=== PATIENT | male | born 1935 | race Caucasian/White ===

== ENCOUNTER 2016-03-17 18:09 | Inpatient (IN) ==
[2016-03-17] MEDS ORDERED: 0.9 % SODIUM CHLORIDE 1,000 ML IV ONE (18:15)
[2016-03-17] MEDS ORDERED: ACETAMINOPHEN 325 MG TABLET PO ONE (18:41)
--- NOTE | 2016-03-17 18:48 | Emergency Department Note ---
Weakness HPI - General Chief complaint: Weakness Stated complaint: weakness Time Seen by Provider: 03/17/16 18:12 Source: patient, EMS Mode of arrival: ambulatory Limitations: no limitations - History of Present Illness HPI Narrative: 80-year-old male with a history of any symptoms for the past 10 days, was seen by his PCP today ,Xavi Bianchi, put him on Bactrim today. Is continuing to feel poorly with weakness and fever. Current temperature 102. Complaining of some weakness. There's been no syncope. Denies any cough and eyes, any chest pain, no nausea, no vomiting, diarrhea, constipation problems. - Related Data Allergies Allergy/AdvReac Type Severity Reaction Status Date / Time NKDA Allergy Unknown N/A Uncoded 08/22/14 04:57 Review of Systems All systems ED: reviewed and negative except as stated. Constitutional: Reports: fever, chills Eyes: Denies: eye pain ENT ED: Denies: ear pain, throat pain Cardiovascular: Denies: chest pain, palpitations, dyspnea on exertion Respiratory: Denies: cough, dyspnea, wheezes Gastrointestinal: Denies: abdominal pain Genitourinary: Reports: as per HPI, urgency, dysuria, frequency. Denies: hematuria, discharge Musculoskeletal: Denies: back pain Integumentary: Denies: rash Neurological: Denies: headache Psychiatric: Denies: anxiety Endocrine: Denies: fatigue Hematological/Lymphatic: Denies: easy bleeding Allergic/Immunologic: Denies: facial swelling Past Medical History Family history: Reports: CAD/AK (father age 83, aortic aneurysm) - Social History smoking status: Former smoker Alcohol use: Reports: Occasionally (2 drinks/d) Drug use: Reports: none Physical Exam - General Limitations: no limitations General appearance: alert - Head Head exam: atraumatic - Eye Eye exam: Present: normal appearance - ENT ENT exam: normal exam - Neck Neck exam: Present: normal inspection, full ROM - Chest Chest inspection: Present: normal inspection, symmetric chest wall rise - Respiratory Respiratory exam: Present: normal lung sounds bilaterally. Absent: respiratory distress, wheezes - Cardiovascular Cardiovascular exam: Present: regular rate, normal rhythm - Abdominal Exam Abdominal exam: Present: soft. Absent: distention, tenderness - Extremities Exam Extremities exam: Present: normal inspection, full ROM. Absent: tenderness - Back Exam Back exam: Present: normal inspection, full ROM. Absent: tenderness - Neurological Exam Neurological exam: Present: alert, oriented X3, CN II-XII intact - Psychiatric Psychiatric exam: Present: normal affect, normal mood. Absent: depressed - Skin Skin exam: Present: warm, dry, intact Course Vital Signs Temperature 102.1 F H 03/17/16 18:10 Pulse Rate 79 03/17/16 18:10 Respiratory Rate 18 03/17/16 18:10 Blood Pressure 137/74 03/17/16 18:10 Pulse Oximetry (%) 94 03/17/16 18:10 Temperature 98.5 F 03/17/16 20:14 Pulse Rate 77 03/17/16 21:00 Respiratory Rate 16 03/17/16 21:00 Blood Pressure 119/73 03/17/16 21:00 Pulse Oximetry (%) 95 03/17/16 21:00 Weakness - MDM Narrative Medical decision making narrative: his bp's have been normal, wbc is elevated at 12,500 and 49 segs and 21 bands. LaCTIC ELEVATED 2.4 ua IS CLEAR BUT HAS BEEN ON SEPTRA TODAY. Dr Velarde contacted and will here to evaluate. - Lab Data Result diagrams: 03/17/16 18:25 03/17/16 18:25 Lab Results 03/17/16 03/17/16 03/17/16 Range/Units 18:25 18:25 18:25 WBC 12.7 H (4.5-11.0) K/mcL RBC 5.35 (4.50-5.90) M/mcL Hgb 16.5 (13.5-16.5) g/dL Hct 50.4 (41.0-55.0) % MCV 94.2 (80.0-100.0) fL MCH 30.9 (26.0-34.0) pg MCHC 32.8 (31.0-36.0) g/dL RDW 14.1 (11.5-14.5) % Plt Count 139 L (140-440) K/mcL MPV 9.4 (7.4-10.4) fL Total Counted 100 Seg Neutrophils % 49 (38-78) % Band Neutrophils % 21 H (0-10) % Lymphocytes % 13 L (15-49) % Monocytes % (Manual) 17 H (1-9) % Platelet Estimate Decreased A (NORMAL) RBC Morphology Normal (NORMAL) VBG Lactic Acid 2.4 H (0.5-2.2) mmol/L Sodium 136 (133-145) mmol/L Potassium 4.1 (3.3-5.1) mmol/L Chloride 94 L (96-108) mmol/L Carbon Dioxide 24 (22-30) mmol/L Anion Gap 18.0 H (8-16) BUN 30 H (8-23) mg/dl Creatinine 1.6 H (0.7-1.2) mg/dl GFR Calculation 40 Glucose 125 H (70-105) mg/dL Calcium 9.6 (8.6-10.4) mg/dl Total Bilirubin 0.8 (0.0-1.0) mg/dL AST 44 H (0-37) U/l ALT 49 H (0-40) U/l Alkaline Phosphatase 79 (39-117) U/L Total Protein 7.6 (5.9-8.4) gm/dL Albumin 4.2 (3.2-5.2) gm/dL Globulin 3.4 (2.2-3.7) gm/dL Albumin/Globulin Ratio 1.2 (1.0-2.3) Urine Color Urine Appearance Urine pH (5.0-9.0) Ur Specific [place] (1.000-1.035) Urine Protein (NEG) mg/dL Urine Glucose (UA) (NEG) mg/dL Urine Ketones (NEG) mg/dL Urine Occult Blood (<0.03) mg/dL Urine Nitrate (NEG) Urine Bilirubin (NEG) mg/dL Urine Urobilinogen (NEG) mg/dL Ur Leukocyte Esterase (NEG) /uL Urine RBC (0-1) /hpf Urine WBC (0-4) /hpf Ur Squamous Epith Cells (0-4) /hpf Ur Transition Epith Cell (0-2) /hpf Urine Bacteria (0) /hpf Hyaline Casts (0-2) /lpf Urine Mucus (0) /hpf Ur Culture Indicated? 03/17/16 Range/Units 20:25 WBC (4.5-11.0) K/mcL RBC (4.50-5.90) M/mcL Hgb (13.5-16.5) g/dL Hct (41.0-55.0) % MCV (80.0-100.0) fL MCH (26.0-34.0) pg MCHC (31.0-36.0) g/dL RDW (11.5-14.5) % Plt Count (140-440) K/mcL MPV (7.4-10.4) fL Total Counted Seg Neutrophils % (38-78) % Band Neutrophils % (0-10) % Lymphocytes % (15-49) % Monocytes % (Manual) (1-9) % Platelet Estimate (NORMAL) RBC Morphology (NORMAL) VBG Lactic Acid (0.5-2.2) mmol/L Sodium (133-145) mmol/L Potassium (3.3-5.1) mmol/L Chloride (96-108) mmol/L Carbon Dioxide (22-30) mmol/L Anion Gap (8-16) BUN (8-23) mg/dl Creatinine (0.7-1.2) mg/dl GFR Calculation Glucose (70-105) mg/dL Calcium (8.6-10.4) mg/dl Total Bilirubin (0.0-1.0) mg/dL AST (0-37) U/l ALT (0-40) U/l Alkaline Phosphatase (39-117) U/L Total Protein (5.9-8.4) gm/dL Albumin (3.2-5.2) gm/dL Globulin (2.2-3.7) gm/dL Albumin/Globulin Ratio (1.0-2.3) Urine Color Yellow Urine Appearance Hazy Urine pH 5.0 (5.0-9.0) Ur Specific [place] 1.021 (1.000-1.035) Urine Protein 30 A (NEG) mg/dL Urine Glucose (UA) Negative (NEG) mg/dL Urine Ketones Neg (NEG) mg/dL Urine Occult Blood Neg (<0.03) mg/dL Urine Nitrate Neg (NEG) Urine Bilirubin Neg (NEG) mg/dL Urine Urobilinogen Neg (NEG) mg/dL Ur Leukocyte Esterase Neg (NEG) /uL Urine RBC 1 (0-1) /hpf Urine WBC 1 (0-4) /hpf Ur Squamous Epith Cells 3 (0-4) /hpf Ur Transition Epith Cell < 1 (0-2) /hpf Urine Bacteria 0 (0) /hpf Hyaline Casts 8 H (0-2) /lpf Urine Mucus Few (0) /hpf Ur Culture Indicated? No Disposition Clinical Impression: Sepsis Disposition: Xfer As Inpt ([facility]) Referrals: Donna Bianchi ARNP [Primary Care Provider] -
[2016-03-17 19:21] LABS: Mean Cell Volume 94.2 fL (80.0-100.0); Mean Corpuscular HGB Conc 32.8 g/dL (31.0-36.0); Mean Corpuscular Hemoglobin 30.9 pg (26.0-34.0); Platelet Count 139 K/mcL (140-440); RBC 5.35 M/mcL (4.50-5.90); Red Cell Distribution Width 14.1 % (11.5-14.5)
[2016-03-17 19:43] LABS: ALT/SGPT 49 U/l (0-40); Albumin 4.2 gm/dL (3.2-5.2); Albumin/Globulin Ratio 1.2 (1.0-2.3); Alkaline Phosphatase 79 U/L (39-117); Blood Urea Nitrogen 30 mg/dl (8-23)
[2016-03-17 19:51] LABS: Band Neutrophils % 21 % (0-10); Lymphocytes % 13 % (15-49); Monocytes % (Manual) 17 % (1-9); Platelet Estimate DECREASED (NORMAL); RBC Morphology NORMAL (NORMAL); Segmented Neutrophils % 49 % (38-78)
[2016-03-17] MEDS ORDERED: LEVOFLOXACIN 500 MG/100 ML BAG IV ONE (19:57)
[2016-03-17 20:38] LABS: Appearance,Urine HAZY; Bacteria,Urine 0 /hpf (0); Bilirubin,Urine NEG (NEG); Color,Urine YELLOW; Glucose,Urine (UA) NEGATIVE (NEG); Leukocyte Esterase,Urine NEG /uL (NEG); Mucus,Urine FEW /hpf (0); Nitrate,Urine NEG (NEG); Protein,Urine 30 mg/dL (NEG); Specific Gravity,Urine 1.021 (1.000-1.035); Urine Blood NEG mg/dL (<0.03); Urine Hyaline Cast 8 /lpf (0-2); Urine RBC 1 /hpf (0-1); Urine Squamous Epithelial Cell 3 /hpf (0-4); Urine Transitional Epi Cells < 1 /hpf (0-2); Urine WBC 1 /hpf (0-4); Urobilinogen,Urine NEG (NEG)
[2016-03-17] MEDS ORDERED: cefTRIAXone 1 GM in DEXTROSE 5% IN WATER 50 ML IV ONE ×2 (21:19→23:05)
[2016-03-17] MEDS ORDERED: ONDANSETRON 4 MG/2 ML VIAL IV PRN ×2 (22:15→23:05)
[2016-03-17] MEDS ORDERED: 0.9 % SODIUM CHLORIDE 1,000 ML IV SCH (22:15)
[2016-03-17] MEDS ORDERED: FLEETS ADULT ENEMA PR PRN ×2 (22:15→23:05)
[2016-03-17] MEDS ORDERED: ACETAMINOPHEN 325 MG TABLET PO PRN ×2 (22:15→23:05)
[2016-03-17] MEDS ORDERED: cefTRIAXone 1 GM in DEXTROSE 5% IN WATER 50 ML IV SCH (22:15)
[2016-03-17] MEDS ORDERED: LEVOFLOXACIN 750 MG/150 ML BAG IV SCH (22:15)
[2016-03-17] MEDS ORDERED: TAMSULOSIN 0.4 MG CAPSULE PO ONE ×2 (22:23→23:05)
--- NOTE | 2016-03-17 22:30 | Internal Med History&Physical ---
Medical - H&P: HPI Patient information: Note initiated : 03/17/16 at 10:26 pm Service Date, if different from initiated Date: [] Patient: Ernesto Murillo a 80 y/o M admitted on for weakness. Chief Complaint: [] History of present illness: Mr. Murillo is a 80 year old male presents to the er after not feeling well for around 10 days, progressive weakness. He went to see his pcp today and was febrile, and was given bactrim. After reaching home he was too weak to stay home. He was finding it difficult to get out of bed and do any activity. he therefore presented to the ER. he denies any chills but was febrile in the Er. he has h/o urinary incontience, he has urinary urgency and incotience, which has been going on for last 1 yr, he takes finasterid and flomax for same. he denies any buring urine, foul smelling urine or uretheral discharge. No pelvic pain. he denies any cough, nausea vomiting, or abdominal pain. In the ER his ua was clean but he had elevated wbc, elevated lactate and worsening renal function, admitted to the hospital for further management. patients X ray is not reported but on my review there may be some infiltrate on the right middle/ lower lobe. 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 - Constitutional Constitutional: Present: fever(s), weakness. Absent: chills - EENT Eyes: Absent: blind spots, blurry vision Nose, mouth and throat: Present: abnormal hearing. Absent: epistaxis, facial pain, odynophagia, sinus pain - Cardiovascular Cardiovascular: Absent: chest pain, chest pain at rest, palpatations, syncope - Respiratory Respiratory: Absent: cough, hemoptysis, wheezing, chest congestion - Gastrointestinal Gastrointestinal: Absent: abdominal pain, constipation, diarrhea, nausea - Genitourinary Genitourinary: change in urinary stream, difficulty urinating, urinary frequency , urinary incontinence - Musculoskeletal Musculoskeletal: Present: arthralgias, back pain. Absent: joint swelling - Integumentary Integumentary: Absent: erythema, skin ulcer, wounds, jaundice - Neurological Neurological: Absent: abnormal gait, confusion, disequilibrium, dizziness, focal weakness, headache(s), sensory deficit, syncope, vertigo - Psychiatric Psychiatric: Present: depression. Absent: anxiety - Endocrine Endocrine: Absent: polydipsia, polyphagia, polyuria - Hematologic/Lymphatic Hematologic/Lymphatic: Present: easy bleeding, easy bruising - Allergic/Immunologic Allergic/Immunologic: Absent: tongue swelling, uticaria, wheezing Medical - H&P: PMH Medical history: Afib on coumadin HTN HLD Obesity BPH Depression, arthritis. Surgical history: haroon hernia surgery Neck surgery. Family history: reviewed and not pertinent Social history: LIves with ex smoker drinks 2-3 drinks a day no recreations drug use. Have you smoked in the last 12 months: No Medical - H&P: Meds Allergies Allergy/AdvReac Type Severity Reaction Status Date / Time NKDA Allergy Unknown N/A Uncoded 08/22/14 04:57 Medical - H&P: Exam - Constitutional Vitals: Temp Pulse Resp BP Pulse Ox 98.5 F 72 19 126/89 97 03/17/16 20:14 03/17/16 22:00 03/17/16 22:00 03/17/16 22:00 03/17/16 22:00 General appearance: morbidly obese - Head Head exam: Present: atraumatic, normal inspection, normocephalic - Eye Eye exam: Absent: conjunctival injection, periorbital swelling, scleral icterus - ENT ENT exam: Present: mucous membranes dry, normal external ear exam - Neck Neck exam: Present: normal inspection - Respiratory Respiratory exam: Present: normal respiratory exam. Absent: rhonchi, stridor, wheezes - Cardiovascular Cardiovascular exam: Present: normal rate and rhythm, irregular rhythm, +S1, +S2 - GI/Abdominal GI/Abdominal exam: Present: normal bowel sounds, soft. Absent: guarding, rigid , tenderness - Additional comments: no cva tenderness - Back Exam Back exam: Present: normal inspection. Absent: CVA tenderness (L), CVA tenderness (R), paraspinal tenderness, vertebral tenderness - Neurological Exam Neurological exam: Present: alert, CN II-XII intact, oriented X3. Absent: motor sensory deficit - Psychiatric Psychiatric exam: Present: normal affect, normal mood - Skin Skin exam: Present: normal color, warm. Absent: rash, urticaria Medical - H&P: Reslt - Labs CBC & Chem 7: 03/17/16 18:25 03/17/16 18:25 Labs: Short CBC 03/17/16 Range/Units 18:25 WBC 12.7 H (4.5-11.0) K/mcL Hgb 16.5 (13.5-16.5) g/dL Hct 50.4 (41.0-55.0) % Plt Count 139 L (140-440) K/mcL BMP 03/17/16 18:25 Sodium 136 Potassium 4.1 Chloride 94 L Carbon Dioxide 24 BUN 30 H Creatinine 1.6 H Glucose 125 H Calcium 9.6 Liver Function 03/17/16 Range/Units 18:25 Total Bilirubin 0.8 (0.0-1.0) mg/dL AST 44 H (0-37) U/l ALT 49 H (0-40) U/l Alkaline Phosphatase 79 (39-117) U/L Albumin 4.2 (3.2-5.2) gm/dL Urine 03/17/16 Range/Units 20:25 Urine Color Yellow Urine Appearance Hazy Urine pH 5.0 (5.0-9.0) Ur Specific [place] 1.021 (1.000-1.035) Urine Protein 30 A (NEG) mg/dL Urine Glucose (UA) Negative (NEG) mg/dL - Imaging and Cardiology Chest x-ray Status: image reviewed by me (possible rt middle/ LL infiltrate/ Left hemidiaphram. ) Medical - H&P: A/P (1) Pneumonia Current visit: Yes Status: Acute On xray, clinically has no cough. treat with rocephin and levoquin fo now blood cultures pending (2) Atrial fibrillation Current visit: Yes Status: Acute on digoxin coumadin no h/o cva rate well controlled. (3) BPH (benign prostatic hyperplasia) Current visit: Yes Status: Acute Urinary frequency and incontinence Was cathed in the ER Bladder scan for now [place] if Urine > 400 cc consider Renal USG in AM if renal function does not improve. (4) Renal failure Current visit: Yes Status: Acute Creat elevated no h/o renal failure as per patient IV fluids avoid nephrotoxic drugs. (5) Depression Current visit: Yes Status: Acute due to of son and mother continue home medications. (6) Sepsis Current visit: Yes Status: Acute Due to pNA, uti less likely, if X ray is repoted clear, will have to look for other source of infection. get CT chest, USG abdomen Lactate elevated by HR and bp stable treat with IV fluids for now. Hemodymically stable no need for icu status. (7) Hypertension Current visit: Yes Status: Acute BP ok resume home bp med clonidine hold losartan -hctz 100-25, hold lasix and KCL due to renal failure.
[2016-03-17] MEDS ORDERED: cefTRIAXone 1 GM VIAL ONE (23:41)
[2016-03-17] MEDS ORDERED: cloNIDine HCL 0.1 MG TABLET ONE (23:43)
[2016-03-17] MEDS: 0.9 % SODIUM CHLORIDE 1,000 ML IV SCH (23:53)
[2016-03-17] MEDS: cloNIDine HCL 0.1 MG TABLET PO SCH (23:56)
[2016-03-18 06:00] LABS: Mean Cell Volume 94.2 fL (80.0-100.0); Mean Corpuscular HGB Conc 32.7 g/dL (31.0-36.0); Mean Corpuscular Hemoglobin 30.8 pg (26.0-34.0); Platelet Count 113 K/mcL (140-440); Red Cell Distribution Width 14.6 % (11.5-14.5)
[2016-03-18] MEDS ORDERED: 0.9 % SODIUM CHLORIDE 10 ML SYRINGE IV SCH (06:00)
[2016-03-18] MEDS: 0.9 % SODIUM CHLORIDE 10 ML SYRINGE IV SCH ×4 (06:18→20:35)
[2016-03-18 06:25] LABS: ALT/SGPT 36 U/l (0-40); Albumin 3.7 gm/dL (3.2-5.2); Albumin/Globulin Ratio 1.3 (1.0-2.3); Alkaline Phosphatase 61 U/L (39-117); Bilirubin,Direct < 0.2 mg/dL (0.0-0.3); Blood Urea Nitrogen 29 mg/dl (8-23); Gamma Glutamyl Transpeptidase 127 U/L (8-61); Magnesium 1.9 mg/dL (1.6-2.5); Phosphorous 2.7 mg/dL (2.7-4.5); Uric Acid 8.9 mg/dL (2.5-8.0)
[2016-03-18 07:02] LABS: Anisocytosis 1+ (NONE SEEN); Band Neutrophils % 20 % (0-10); Eosinophils % (Manual) 1 % (0-7); Lymphocytes % 13 % (15-49); Monocytes % (Manual) 13 % (1-9); Platelet Estimate DECREASED (NORMAL); RBC Morphology ABNORM (NORMAL); Segmented Neutrophils % 46 % (38-78)
--- NOTE | 2016-03-18 07:49 | XRay Report ---
HISTORY: Reason for Exam:CHEST PAIN and fever FINDINGS: The left diaphragm is mildly elevated. There is mild stranding of the lung parenchyma adjacent to the diaphragm. Prior CT done on 10/03/14 revealed minor scarring in this region. The lungs are otherwise clear normally expanded. The heart size is normal and there is no congestive heart failure or pleural effusion. 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 IMPRESSION: Minor parenchymal scarring at the left lung base. No acute abnormality has developed Interpreted and Authenticated by: Desmond Han 03/18/16
[2016-03-18] MEDS: 0.9 % SODIUM CHLORIDE 1,000 ML IV SCH ×3 (08:13→18:40)
[2016-03-18] MEDS: busPIRone 5 MG TABLET PO SCH ×2 (08:38→20:30)
[2016-03-18] MEDS: ASPIRIN 81 MG TAB.CHEW CHEWED SCH (08:38)
[2016-03-18] MEDS: SERTRALINE 50 MG TABLET PO SCH (08:40)
[2016-03-18] MEDS: FINASTERIDE 5 MG TABLET PO SCH (08:40)
[2016-03-18] MEDS: DOCUSATE SODIUM 100 MG CAPSULE PO SCH ×2 (08:40→22:12)
[2016-03-18] MEDS: cloNIDine HCL 0.1 MG TABLET PO SCH ×2 (08:42→20:29)
[2016-03-18] MEDS ORDERED: busPIRone 15 MG TABLET PO SCH (09:00)
[2016-03-18] MEDS ORDERED: ASPIRIN 81 MG TAB.CHEW CHEWED SCH (09:00)
[2016-03-18] MEDS ORDERED: LEVOFLOXACIN 750 MG/150 ML BAG IV SCH (09:00)
[2016-03-18] MEDS ORDERED: FINASTERIDE 5 MG TABLET PO SCH (09:00)
[2016-03-18] MEDS ORDERED: SERTRALINE 100 MG TABLET PO SCH (09:00)
[2016-03-18] MEDS ORDERED: DOCUSATE SODIUM 100 MG CAPSULE PO SCH (09:00)
[2016-03-18] MEDS ORDERED: cloNIDine HCL 0.1 MG TABLET PO SCH (09:00)
--- NOTE | 2016-03-18 13:42 | Internal Med Progress Note ---
Medical - PN: Subj Patient information: Note initiated : 03/18/16 at 1:39 pm Service Date, if different from initiated Date: [] Patient: Ernesto Murillo 80 y/o M admitted on 03/17/16 for Weakness/Pneumonia, Sepsis. Chief Complaint: [] Interval history: The patient seen examined today no acute complaints no acute overnight events feelling much better afebrile now The patient still is weak, and finds it difficult to ambulate, but feels much better than yesterday. I reviwed the x ray, and lab findings with him. His urine culture is postive for enterococcus. In light of UTI in male with enterococcus, I have ordered renal ultrasound to further evaluate this. his Renal function has improved but still not back to normal He denies any chest pain, shortness of breath, cough, abdominal pain, nausea or vomiting. - Constitutional Vitals: Vital Signs Temp Pulse Resp BP Pulse Ox 96.9 F L 64 20 129/78 96 03/18/16 13:19 03/18/16 13:19 03/18/16 13:19 03/18/16 13:19 03/18/16 13:19 Period Temp Pulse Resp BP Sys/Mcneill Pulse Ox Last 24 Hr 96.7 F-97.9 F 64-77 18-20 124-130/52-81 92-96 Intake and Output 03/17/16 03/18/16 03/18/16 21:59 05:59 13:59 Intake Total 350 / 350 1560 / 1560 Output Total 350 / 350 326 / 326 Balance 0 / 0 1234 / 1234 Weight 251 lb 8 oz Patient Weight 03/19/16 05:59 Weight 251 lb 8 oz Intake & Output: Intake & Output 03/17/16 03/18/16 03/18/16 21:59 05:59 13:59 Intake Total 350 / 350 1560 / 1560 Output Total 350 / 350 326 / 326 Balance 0 / 0 1234 / 1234 Weight 251 lb 8 oz Intake: IV 1000 / 1000 Sodium Chloride 0.9% 1, 1000 / 1000 000 ml @ 125 mls/hr IV . Q8H [facility] Rx#:[id number] Oral 350 / 350 560 / 560 Output: Void Amount 350 / 350 325 / 325 # of times incontinent of urine Other: Meal Lunch Percent of Meal Consumed 100% Feeding Ability Independent # Bowel Movements 1 - Head Head exam: Present: atraumatic, normal inspection, normocephalic - Eye Eye exam: Absent: conjunctival injection, periorbital swelling, PERRL, scleral icterus - Neck Neck exam: Present: normal inspection. Absent: tenderness - Respiratory Respiratory exam: Present: normal respiratory exam. Absent: accessory muscle use, respiratory distress, rhonchi, stridor, wheezes - Cardiovascular Cardiovascular exam: Present: irregular rhythm, +S1, +S2 - GI/Abdominal GI/Abdominal exam: Present: normal bowel sounds, soft. Absent: rebound, rigid - Neurological Exam Neurological exam: Present: alert, CN II-XII intact, oriented X3 - Skin Skin exam: Absent: rash, urticaria Medical - PN: Obj Da - Labs CBC & Chem 7: 03/18/16 04:58 03/18/16 04:58 Labs: Abnormal Lab Results 03/18/16 03/18/16 03/18/16 06:58 04:58 04:58 RDW 14.6 H Plt Count 113 L Band Neutrophils % 20 H Lymphocytes % 13 L Monocytes % (Manual) 13 H Reactive Lymphocytes 7 H Platelet Estimate Decreased A RBC Morphology Abnorm A Anisocytosis 1+ A PT 20.8 H INR 1.7 H BUN 29 H Creatinine 1.4 H Glucose 119 H Uric Acid 8.9 H GGT 127 H AST 39 H Meds: Medications Acetaminophen (Tylenol) 650 mg PO Q6HP PRN PRN Reason: PAIN/FEVER > 101 Aspirin (Aspirin) 81 mg CHEWED DAILY [facility] Last Admin: 03/18/16 08:38 Dose: 81 mg Buspirone HCl (Buspar) 7.5 mg PO BID [facility] Last Admin: 03/18/16 08:38 Dose: 7.5 mg Clonidine HCl (Catapres) 0.2 mg PO BID [facility] Last Admin: 03/18/16 08:42 Dose: 0.2 mg Digoxin (Lanoxin) 125 mcg PO DAILY@1400 [facility] Docusate Sodium (Colace) 100 mg PO BID [facility] Last Admin: 03/18/16 08:40 Dose: 100 mg Finasteride (Proscar) 5 mg PO DAILY [facility] Last Admin: 03/18/16 08:40 Dose: 5 mg Levofloxacin (Levaquin) 750 mg in 150 mls @ 100 mls/hr IV DAILY [facility] Last Admin: 03/18/16 09:24 Dose: 100 mls/hr Sodium Chloride (Sodium Chloride 0.9%) 1,000 mls @ 125 mls/hr IV .Q8H [facility] Stop: 03/18/16 22:14 Last Admin: 03/18/16 08:13 Dose: 125 mls/hr Ceftriaxone Sodium 1 gm/ (Dextrose) 50 mls @ 100 mls/hr IV DAILY [facility] Ondansetron HCl (Zofran) 4 mg IV Q6HP PRN PRN Reason: Nausea And Vomiting Pneumococcal Polyvalent Vaccine (Pneumovax 23) 0.5 ml IM .ONCE ONE Stop: 03/19/16 09:01 Sertraline HCl (Zoloft) 100 mg PO DAILY [facility] Last Admin: 03/18/16 08:40 Dose: 100 mg Simvastatin (Zocor) 20 mg PO HS [facility] Sodium Biphosphate/Sodium Phosphate (Fleets Adult) 1 dose NM Q3-4DAYS PRN PRN Reason: Constipation Sodium Chloride (Saline Flush) 10 ml IV Q8 [facility] Last Admin: 03/18/16 06:18 Dose: Not Given Warfarin Sodium (Coumadin) 3 mg PO DAILY@1400 [facility] Medical - PN: A/P - Time Spent With Patient Total time spent is greater than 50% in coordination of care (as documented) at patient's floor/unit and/or counseling patient: (1) Atrial fibrillation Status: Acute Assessment and plan: Hr is stable, no palpitations INR was low today but given his use of broad spectrum antibiotics I think that this will go up monitor for now. Current Visit: Yes (2) BPH (benign prostatic hyperplasia) Status: Acute Assessment and plan: on flomax and finateride continue same. Current Visit: Yes (3) Renal failure Status: Acute Assessment and plan: creatinie improved to 1.4, continue IV fluids get renal ultrasound. Current Visit: Yes (4) Sepsis Status: Acute Current Visit: Yes (5) Hypertension Status: Acute Assessment and plan: Blood pressure is stable continue to hold nephrotoxic bp med monitor for now consider resumption on discharge. or inpatient if BP improves. Current Visit: Yes (6) Enterococcus UTI Status: Acute Assessment and plan: UA is negative, but the patient has urine culture which is positive. 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 will continue till I have cultures and sensitivities back will descalate therapy Renal imaging with usg for now. Current Visit: Yes Medical - PN: Qual - Stroke Symptom Onset Unknown: No - VTE Deep Vein Thrombosis/Pulmonary Embolism Present on Admission: No
[2016-03-18] MEDS ORDERED: ENOXAPARIN 30 MG/0.3 ML SYRINGE SQ ONE (13:52)
[2016-03-18] MEDS ORDERED: WARFARIN 3 MG TABLET PO SCH ×2 (14:00)
[2016-03-18] MEDS ORDERED: DIGOXIN 125 MCG TABLET PO SCH (14:00)
--- NOTE | 2016-03-18 14:39 | Ultrasound Report ---
History: Chronic renal failure and urinary tract infection Findings: The right kidney is 5.7 x 5.8 x 12.1 cm the left measures 5.5 x 4.6 x 12.0 cm. There is an exophytic simple cyst at the upper pole the right kidney which measures 4.6 x 5.0 x 5.9 cm. The right kidney otherwise appears normal anatomically. There is no loss of renal parenchyma, calculus, mass or hydronephrosis. The parenchyma of the left kidney is mildly echogenic but there is no cortical atrophy. No mass, cyst, calculus or hydronephrosis are present. There is diminished urine output bilaterally. Doppler did not reveal the presence of flow of urine through either ureter into the bladder. The patient had voided prior to the examination. Therefore the bladder was empty and cannot be evaluated. The prostate is moderately enlarged and has an estimated volume of 62 cc. Impression: Mildly echogenic renal parenchyma in the left side consistent with chronic medical renal disease. Moderate size simple cyst in the right kidney. Diminished urine output bilaterally. This could be due to chronic kidney disease or dehydration Interpreted and Authenticated by: Desmond Han 03/18/16
[2016-03-18] MEDS: cefTRIAXone 1 GM in DEXTROSE 5% IN WATER 50 ML IV SCH ×2 (15:40→15:47)
[2016-03-18] MEDS: DIGOXIN 125 MCG TABLET PO SCH (15:45)
[2016-03-18] MEDS: SIMVASTATIN 20 MG TABLET PO SCH (20:29)
[2016-03-18] MEDS ORDERED: LOVASTATIN 20 MG TABLET PO SCH (21:00)
[2016-03-19] MEDS: 0.9 % SODIUM CHLORIDE 10 ML SYRINGE IV SCH ×4 (03:38→21:45)
[2016-03-19 07:37] LABS: ALT/SGPT 35 U/l (0-40); Albumin 3.4 gm/dL (3.2-5.2); Albumin/Globulin Ratio 1.5 (1.0-2.3); Alkaline Phosphatase 63 U/L (39-117); Bilirubin,Direct < 0.2 mg/dL (0.0-0.3); Blood Urea Nitrogen 24 mg/dl (8-23); Gamma Glutamyl Transpeptidase 115 U/L (8-61); Phosphorous 2.2 mg/dL (2.7-4.5)
[2016-03-19] MEDS ORDERED: VANCOMYCIN PER PHARMACY IV ONE (07:48)
[2016-03-19 07:49] LABS: Basophils # (Auto) 0 K/mcL (0.0-0.3); Basophils % (Auto) 0.2 % (0.0-2.0); Eosinophils # (Auto) 0.1 K/mcL (0.0-0.7); Granulocytes % (Auto) 53.4 % (38.0-78.0); Lymphocytes # (Auto) 1.7 K/mcL (1.5-4.8); Lymphocytes % (Auto) 21.5 % (15.5-49.0); Mean Corpuscular HGB Conc 33.3 g/dL (31.0-36.0); Mean Corpuscular Hemoglobin 31.4 pg (26.0-34.0); Monocytes # (Auto) 1.9 K/mcL (0.1-0.9); Monocytes % (Auto) 23.9 % (1.0-9.0); Platelet Count 119 K/mcL (140-440); RBC 4.58 M/mcL (4.50-5.90); Red Cell Distribution Width 14.6 % (11.5-14.5)
[2016-03-19] MEDS: cloNIDine HCL 0.1 MG TABLET PO SCH ×2 (08:36→20:37)
[2016-03-19] MEDS: HYDROCHLOROTHIAZIDE 25 MG TABLET PO SCH (08:36)
[2016-03-19] MEDS: LOSARTAN 50 MG TABLET PO SCH (08:36)
[2016-03-19] MEDS: ASPIRIN 81 MG TAB.CHEW CHEWED SCH (08:37)
[2016-03-19] MEDS: busPIRone 5 MG TABLET PO SCH ×2 (08:37→20:37)
[2016-03-19] MEDS: DOCUSATE SODIUM 100 MG CAPSULE PO SCH ×2 (08:38→20:38)
[2016-03-19] MEDS: FINASTERIDE 5 MG TABLET PO SCH (08:40)
[2016-03-19] MEDS: cefTRIAXone 1 GM in DEXTROSE 5% IN WATER 50 ML IV SCH (08:51)
[2016-03-19] MEDS ORDERED: PNEUMOCOCCAL 23-VAL P-SAC VAC 0.5 ML VIAL IM ONE (09:00)
[2016-03-19] MEDS: ENOXAPARIN 30 MG/0.3 ML SYRINGE SQ SCH (09:01)
[2016-03-19] MEDS: VANCOMYCIN 1,500 MG in 0.9 % SODIUM CHLORIDE 500 ML IV SCH (09:59)
[2016-03-19] MEDS: SERTRALINE 50 MG TABLET PO SCH (10:00)
--- NOTE | 2016-03-19 10:59 | Internal Med Progress Note ---
Medical - PN: Subj Patient information: Note initiated : 03/19/16 at 10:54 am Service Date, if different from initiated Date: [] Patient: Ernesto Murillo 80 y/o M admitted on 03/17/16 for Weakness/Pneumonia, Sepsis. Chief Complaint: [] Interval history: The patient seen examined, this AM, NO acute complaints, feels weak but note he is progressively getting better Used a walker to ambulate, feels that he may benefit from use of same at home. Has not used this in the past. will get OT/ PT referral The patient urinary issues are improving. I reviewed the blood work with him and answered all his questions. He has no chest pains, no shortness of breath, no abdominal pain, no nausea or vomiting. - Constitutional Vitals: Vital Signs Temp Pulse Resp BP Pulse Ox 97.8 F 66 20 156/94 95 03/19/16 06:51 03/19/16 06:51 03/19/16 06:51 03/19/16 06:51 03/19/16 06:51 Period Temp Pulse Resp BP Sys/Mcneill Pulse Ox Last 24 Hr 96.9 F-9702 F 61-69 20-24 121-156/73-94 93-96 Intake and Output 03/18/16 03/19/16 03/19/16 21:59 05:59 13:59 Intake Total 1670 / 1670 425 / 425 Output Total 426 / 426 225 / 225 300 / 300 Balance 1244 / 1244 200 / 200 -300 / -300 Weight 252 lb 8 oz Intake & Output: Intake & Output 03/18/16 03/19/16 03/19/16 21:59 05:59 13:59 Intake Total 1670 / 1670 425 / 425 Output Total 426 / 426 225 / 225 300 / 300 Balance 1244 / 1244 200 / 200 -300 / -300 Weight 252 lb 8 oz Intake: IV 1050 / 1050 Sodium Chloride 0.9% 1, 1000 / 1000 000 ml @ 125 mls/hr IV . Q8H [facility] Rx#:[id number] Dextrose 5% in Water 50 50 / 50 ml @ 100 mls/hr IV DAILY [facility] with Rocephin 1 gm Rx #:[id number] Oral 620 / 620 425 / 425 Output: Void Amount 425 / 425 225 / 225 300 / 300 Stool Other: Meal Dinner Percent of Meal Consumed 100% Feeding Ability Independent # Voids 1 # Bowel Movements 1 General appearance: cooperative, no acute distress - Head Head exam: Present: atraumatic, normal inspection, normocephalic - Eye Eye exam: Absent: periorbital swelling, periorbital tenderness, scleral icterus - Respiratory Respiratory exam: Present: normal respiratory exam. Absent: rhonchi, stridor, wheezes - Cardiovascular Cardiovascular exam: Present: irregular rhythm, +S1, +S2 - GI/Abdominal GI/Abdominal exam: Present: normal bowel sounds, soft. Absent: rigid, tenderness - Neurological Exam Neurological exam: Present: abnormal gait, CN II-XII intact. Absent: motor sensory deficit - Skin Skin exam: Present: intact, warm. Absent: urticaria Medical - PN: Obj Da - Labs CBC & Chem 7: 03/19/16 04:40 03/19/16 04:40 Labs: Abnormal Lab Results 03/19/16 03/19/16 03/19/16 04:40 04:40 04:40 RDW 14.6 H Plt Count 119 L [place] % (Auto) 23.9 H [place] # 1.9 H Band Neutrophils % Lymphocytes % Monocytes % (Manual) Reactive Lymphocytes Platelet Estimate RBC Morphology Anisocytosis PT 19.6 H INR 1.6 H BUN 24 H Creatinine Glucose 109 H Uric Acid Calcium 8.1 L Phosphorus 2.2 L GGT 115 H AST 42 H Total Protein 5.7 L Triglycerides 151 H 03/18/16 03/18/16 03/18/16 06:58 04:58 04:58 RDW 14.6 H Plt Count 113 L [place] % (Auto) [place] # Band Neutrophils % 20 H Lymphocytes % 13 L Monocytes % (Manual) 13 H Reactive Lymphocytes 7 H Platelet Estimate Decreased A RBC Morphology Abnorm A Anisocytosis 1+ A PT 20.8 H INR 1.7 H BUN 29 H Creatinine 1.4 H Glucose 119 H Uric Acid 8.9 H Calcium Phosphorus GGT 127 H AST 39 H Total Protein Triglycerides Meds: Medications Acetaminophen (Tylenol) 650 mg PO Q6HP PRN PRN Reason: PAIN/FEVER > 101 Aspirin (Aspirin) 81 mg CHEWED DAILY [facility] Last Admin: 03/19/16 08:37 Dose: 81 mg Buspirone HCl (Buspar) 7.5 mg PO BID [facility] Last Admin: 03/19/16 08:37 Dose: 7.5 mg Clonidine HCl (Catapres) 0.2 mg PO BID [facility] Last Admin: 03/19/16 08:36 Dose: 0.2 mg Digoxin (Lanoxin) 125 mcg PO DAILY@1400 [facility] Last Admin: 03/18/16 15:45 Dose: 125 mcg Docusate Sodium (Colace) 100 mg PO BID [facility] Last Admin: 03/19/16 08:38 Dose: 100 mg Enoxaparin Sodium (Lovenox) 30 mg SQ DAILY [facility] Last Admin: 03/19/16 09:01 Dose: 30 mg Finasteride (Proscar) 5 mg PO DAILY [facility] Last Admin: 03/19/16 08:40 Dose: 5 mg Hydrochlorothiazide (Oretic) 25 mg PO DAILY [facility] Last Admin: 03/19/16 08:36 Dose: 25 mg Ceftriaxone Sodium 1 gm/ (Dextrose) 50 mls @ 100 mls/hr IV DAILY [facility] Last Admin: 03/19/16 08:51 Dose: 100 mls/hr Vancomycin HCl 1,500 mg/ (Sodium Chloride) 500 mls @ 333.3 mls/hr IV Q24H [facility] Last Admin: 03/19/16 09:59 Dose: 333.3 mls/hr Losartan Potassium (Cozaar) 100 mg PO DAILY [facility] Last Admin: 03/19/16 08:36 Dose: 100 mg Ondansetron HCl (Zofran) 4 mg IV Q6HP PRN PRN Reason: Nausea And Vomiting Sertraline HCl (Zoloft) 100 mg PO DAILY [facility] Last Admin: 03/19/16 10:00 Dose: 100 mg Simvastatin (Zocor) 20 mg PO HS [facility] Last Admin: 03/18/16 20:29 Dose: 20 mg Sodium Biphosphate/Sodium Phosphate (Fleets Adult) 1 dose DE Q3-4DAYS PRN PRN Reason: Constipation Sodium Chloride (Saline Flush) 10 ml IV Q8 [facility] Last Admin: 03/19/16 07:50 Dose: 10 ml Warfarin Sodium (Coumadin) 3 mg PO DAILY@1400 [facility] Last Admin: 03/18/16 15:46 Dose: 3 mg Warfarin Sodium (Coumadin) 4 mg PO DAILY@1400 [facility] Medical - PN: A/P - Time Spent With Patient Total time spent is greater than 50% in coordination of care (as documented) at patient's floor/unit and/or counseling patient: (1) Atrial fibrillation Status: Acute Assessment and plan: Hr is stable, no palpitations INR was low today again, started on lovenox prophylactic dose till INR is therapeutic. Monitor INR daily Current Visit: Yes (2) BPH (benign prostatic hyperplasia) Status: Acute Assessment and plan: on flomax and finateride continue same. Current Visit: Yes (3) Renal failure Status: Acute Assessment and plan: creatinie improved to 1.1, renal usg shows medical renal disease continue IV fluids and monitor. Current Visit: Yes (4) Sepsis Status: Acute Assessment and plan: resolved. Current Visit: Yes (5) Hypertension Status: Acute Assessment and plan: Blood pressure is stable and few readings on the higher end Resume his losartan-hctz . Current Visit: Yes (6) Enterococcus UTI Status: Acute Assessment and plan: UA is negative, but the patient has urine culture which is positive. 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 will continue till I have cultures and sensitivities back will deescalate treatment Renal imaging neg for any abscess. Current Visit: Yes Medical - PN: Qual - Stroke Symptom Onset Unknown: No - VTE Deep Vein Thrombosis/Pulmonary Embolism Present on Admission: No
[2016-03-19] MEDS ORDERED: WARFARIN 4 MG TABLET PO SCH (14:00)
[2016-03-19] MEDS: DIGOXIN 125 MCG TABLET PO SCH (14:16)
[2016-03-19] MEDS: SIMVASTATIN 20 MG TABLET PO SCH (20:38)
[2016-03-20] MEDS: 0.9 % SODIUM CHLORIDE 10 ML SYRINGE IV SCH (06:02)
[2016-03-20 07:37] LABS: Basophils # (Auto) 0 K/mcL (0.0-0.3); Basophils % (Auto) 0.4 % (0.0-2.0); Eosinophils # (Auto) 0.2 K/mcL (0.0-0.7); Eosinophils % (Auto) 2.5 % (0.0-7.0); Granulocytes % (Auto) 51.3 % (38.0-78.0); Lymphocytes # (Auto) 1.7 K/mcL (1.5-4.8); Lymphocytes % (Auto) 26.7 % (15.5-49.0); Mean Cell Volume 93.7 fL (80.0-100.0); Mean Corpuscular HGB Conc 32.9 g/dL (31.0-36.0); Mean Corpuscular Hemoglobin 30.8 pg (26.0-34.0); Monocytes # (Auto) 1.2 K/mcL (0.1-0.9); Monocytes % (Auto) 19.1 % (1.0-9.0); Platelet Count 101 K/mcL (140-440); RBC 4.78 M/mcL (4.50-5.90); Red Cell Distribution Width 14.2 % (11.5-14.5)
[2016-03-20 07:42] LABS: ALT/SGPT 55 U/l (0-40); Albumin 3.4 gm/dL (3.2-5.2); Albumin/Globulin Ratio 1.4 (1.0-2.3); Alkaline Phosphatase 75 U/L (39-117); Bilirubin,Direct < 0.2 mg/dL (0.0-0.3); Blood Urea Nitrogen 21 mg/dl (8-23); Gamma Glutamyl Transpeptidase 141 U/L (8-61); Magnesium 2.1 mg/dL (1.6-2.5); Phosphorous 3.1 mg/dL (2.7-4.5); Uric Acid 7.6 mg/dL (2.5-8.0)
[2016-03-20] MEDS: FINASTERIDE 5 MG TABLET PO SCH (09:26)
[2016-03-20] MEDS: SERTRALINE 50 MG TABLET PO SCH (09:27)
[2016-03-20] MEDS: LOSARTAN 50 MG TABLET PO SCH (09:27)
[2016-03-20] MEDS: busPIRone 5 MG TABLET PO SCH (09:27)
[2016-03-20] MEDS: ASPIRIN 81 MG TAB.CHEW CHEWED SCH (09:29)
[2016-03-20] MEDS: cloNIDine HCL 0.1 MG TABLET PO SCH (09:29)
[2016-03-20] MEDS: HYDROCHLOROTHIAZIDE 25 MG TABLET PO SCH (09:29)
[2016-03-20] MEDS: ENOXAPARIN 30 MG/0.3 ML SYRINGE SQ SCH (09:31)
[2016-03-20] MEDS: DOCUSATE SODIUM 100 MG CAPSULE PO SCH (09:31)
[2016-03-20] MEDS: VANCOMYCIN 1,500 MG in 0.9 % SODIUM CHLORIDE 500 ML IV SCH (09:32)
--- NOTE | 2016-03-20 11:01 | Discharge Summary ---
Medical - DS: Prov Patient information: Note initiated : 03/20/16 at 10:59 am Service Date, if different from initiated Date: [] Patient: Ernesto Murillo 80 y/o M admitted on 03/17/16 for Weakness/Pneumonia, Sepsis. Chief Complaint: [] Date of admission: 03/17/16 23:01 Discharge date: 03/20/16 Primary care physician: [f_Reg Prim Care Provider] Medical - DS: Meds - Discharge Medications Prescriptions: Amoxicillin 500 mg PO Q12H #28 tablet Active and Home Medications: Home Medications Aspirin [Lo-Dose Aspirin EC] 81 mg PO DAILY 03/18/16 [History Confirmed Last Taken 03/17/16 07:30] Digoxin [Lanoxin] 125 mcg PO DAILY 03/18/16 [History Confirmed 03/18/16 Last Taken 03/16/16 22:00] Finasteride [Proscar] 5 mg PO DAILY 03/18/16 [History Confirmed 03/18/16 Last Taken 03/17/16 07:30] Furosemide [Lasix] 20 mg PO DAILY 03/18/16 [History Confirmed 03/18/16 Last Taken 03/16/16 22:00] Losartan/Hydrochlorothiazide [Losartan-Hctz 100-25 mg Tab] 1 each PO DAILY 03/18 [History Confirmed 03/18/16 Last Taken 03/16/16 22:00] Lovastatin 40 mg PO HS 03/18/16 [History Confirmed 03/18/16 Last Taken 03/16/16 22:00] Potassium Chloride [Klor-Con Sprinkle] 10 meq PO DAILY 03/18/16 [History Confirmed 03/18/16 Last Taken 03/16/16 22:00] Sertraline [Zoloft] 150 mg PO QHS 03/18/16 [History Confirmed 03/18/16 Last Taken 03/16/16 22:00] Tamsulosin [Flomax] 0.4 mg PO HS 03/18/16 [History Confirmed 03/18/16 Last Taken 03/16/16 22:00] Warfarin [Coumadin] 3 mg PO DAILY 03/18/16 [History Confirmed 03/18/16 Last Taken 03/16/16 22:00] busPIRone [Buspar] 7.5 mg PO BID 03/18/16 [History Confirmed 03/18/16 Last Taken 03/17/16 07:30] cloNIDine HCL [Catapres] 0.2 mg PO BID 03/18/16 [History Confirmed 03/18/16 Last Taken 03/17/16 07:30] Amoxicillin 500 mg PO Q12H #28 tablet 03/20/16 [Rx Last Taken Unknown] Active Medications Acetaminophen (Tylenol) 650 mg PO Q6HP PRN PRN Reason: PAIN/FEVER > 101 Aspirin (Aspirin) 81 mg CHEWED DAILY [facility] Last Admin: 03/20/16 09:29 Dose: 81 mg Buspirone HCl (Buspar) 7.5 mg PO BID [facility] Last Admin: 03/20/16 09:27 Dose: 7.5 mg Clonidine HCl (Catapres) 0.2 mg PO BID [facility] Last Admin: 03/20/16 09:29 Dose: 0.2 mg Digoxin (Lanoxin) 125 mcg PO DAILY@1400 [facility] Last Admin: 03/19/16 14:16 Dose: 125 mcg Docusate Sodium (Colace) 100 mg PO BID [facility] Last Admin: 03/20/16 09:31 Dose: 100 mg Enoxaparin Sodium (Lovenox) 30 mg SQ DAILY [facility] Last Admin: 03/20/16 09:31 Dose: 30 mg Finasteride (Proscar) 5 mg PO DAILY [facility] Last Admin: 03/20/16 09:26 Dose: 5 mg Hydrochlorothiazide (Oretic) 25 mg PO DAILY [facility] Last Admin: 03/20/16 09:29 Dose: 25 mg Ceftriaxone Sodium 1 gm/ (Dextrose) 50 mls @ 100 mls/hr IV DAILY [facility] Last Admin: 03/19/16 08:51 Dose: 100 mls/hr Vancomycin HCl 1,500 mg/ (Sodium Chloride) 500 mls @ 333.3 mls/hr IV Q24H [facility] Last Admin: 03/20/16 09:32 Dose: 333.3 mls/hr Losartan Potassium (Cozaar) 100 mg PO DAILY [facility] Last Admin: 03/20/16 09:27 Dose: 100 mg Ondansetron HCl (Zofran) 4 mg IV Q6HP PRN PRN Reason: Nausea And Vomiting Sertraline HCl (Zoloft) 100 mg PO DAILY [facility] Last Admin: 03/20/16 09:27 Dose: 100 mg Simvastatin (Zocor) 20 mg PO HS [facility] Last Admin: 12/31/16 20:38 Dose: 20 mg Sodium Biphosphate/Sodium Phosphate (Fleets Adult) 1 dose [place] Q3-4DAYS PRN PRN Reason: Constipation Sodium Chloride (Saline Flush) 10 ml IV Q8 [facility] Last Admin: 03/20/16 06:02 Dose: Not Given Warfarin Sodium (Coumadin) 4 mg PO DAILY@1400 [facility] Last Admin: 03/19/16 14:16 Dose: 4 mg Medical - DS: Hosp Hospital course: DISCHARGE DIAGNOSIS * Aevere sepsis acute organ dysfunction-clinically improved downtrending creatinine * acute bacterial prostatitis clinically improving on Zosyn and vancomycin- enterococci and culture-D escalated to amoxicillin. Continue for additional 14 days * Acute renal failure secondary to sepsis-clinically improvement noted cracking down from 1.6-1. * history of hypertension restart home meds * Atrial fibrillation on digoxin. Anticoagulation on Coumadin for CVA prophylaxis. INR 1.7. continue outpatient Coumadin management as perprimary care physician. Check INR in 3-4 days * hyperlipidemia on statin * Anxiety disorder and BuSpar * BPH on tamsulosin/finasteride BRIEF HOSPITAL COURSE 03/17-Mr. Murillo is a 80 year old male presents to the er after not feeling well for around 10 days, progressive weakness. He went to see his pcp today and was febrile, and was given bactrim. After reaching home he was too weak to stay home. He was finding it difficult to get out of bed and do any activity. he therefore presented to the ER. he denies any chills but was febrile in the Er. he has h/o urinary incontience, he has urinary urgency and incotience, which has been going on for last 1 yr, he takes finasterid and flomax for same. he denies any buring urine, foul smelling urine or uretheral discharge. No pelvic pain. he denies any cough, nausea vomiting, or abdominal pain. In the ER his ua was clean but he had elevated wbc, elevated lactate and worsening renal function, admitted to the hospital for further management. 03/18-03/19. Patient clinically improved with downtrending leukocytosis and resolution of fever. Urine cultures revealed enterococci. Sensitivities pending. On Zosyn and vancomycin. Patient feels clinically improved. improving renal function. 03/20-pansensitive enterococci on urine cultures. antibiotics de-escalate to amoxicillin. Patient requesting discharge and feeling at baseline. Continue additional 14 days of amoxicillin in light of pansensitive enterococci and presumed bacterial prostatitis. patient will require follow-up with urology as an outpatient. renal function resolved with creatinine down from 1.6-1.1. Patient is afebrile nondistressed. - Time Spent with Patient Total time spent providing and/or coordinating discharge services: Greater than 30 minutes Medical - DS: Exam - Constitutional Vitals: Vital Signs Temp Pulse Resp BP BP Pulse Ox 03/20/16 10:50 97.5 F L 51 L 20 131/76 94 03/20/16 06:22 97.4 F L 58 L 20 150/93 96 03/20/16 04:00 97.4 F L 64 18 149/92 96 03/19/16 23:30 98.4 F 59 L 18 143/84 96 03/19/16 18:32 97.9 F 58 L 18 143/84 95 03/19/16 14:58 97.1 F L 54 L 20 127/84 94 03/19/16 11:32 97.8 F 54 L 20 128/83 94 Intake and Output 03/19/16 03/20/16 03/20/16 21:59 05:59 13:59 Intake Total 960 / 960 250 / 250 300 / 300 Output Total 650 / 650 600 / 600 320 / 320 Balance 310 / 310 -350 / -350 -20 / -20 Intake: Oral 960 / 960 250 / 250 300 / 300 Output: Void Amount 650 / 650 600 / 600 320 / 320 Other: Meal Breakfast Percent of Meal Consumed 100% # Voids 1 Weight 259 lb 8 oz General appearance: cooperative, no acute distress Additional comments: alert oriented No abdominal distention No anxiety Medical - DS: Data Labs on day of discharge: Labs from last 24 hours 03/20/16 03/20/16 03/20/16 05:15 05:15 05:15 WBC 6.3 RBC 4.78 Hgb 14.8 Hct 44.8 MCV 93.7 MCH 30.8 MCHC 32.9 RDW 14.2 Plt Count 101 L MPV 9.7 Gran % 51.3 Lymph % (Auto) 26.7 [place] % (Auto) 19.1 H Eos % (Auto) 2.5 Baso % (Auto) 0.4 Gran # 3.2 Lymph # 1.7 [place] # 1.2 H Eos # 0.2 Baso # 0 PT 20.2 H INR 1.7 H Sodium 141 Potassium 4.6 Chloride 104 Carbon Dioxide 20 L Anion Gap 17.0 H BUN 21 Creatinine 1.0 GFR Calculation 71 Glucose 107 H Uric Acid 7.6 Calcium 8.8 Phosphorus 3.1 Magnesium 2.1 Total Bilirubin 0.4 Direct Bilirubin < 0.2 GGT 141 H AST 63 H ALT 55 H Alkaline Phosphatase 75 Lactate Dehydrogenase 335 H Total Protein 5.9 Albumin 3.4 Globulin 2.5 Albumin/Globulin Ratio 1.4 Triglycerides 136 Medical - DS: A/P - Patient/Caregiver Discharge Instructions Activity: increase activity as tolerated, resume usual activities as tolerated Diet: Regular Diet Additional Instructions: Follow-up PCP in 5 days follow-up with urology in 2 weeks Coumadin for CVA prophylaxis. I recommend primary care physician to check INR, CBC BMP UA as a posthospital follow-up Antibiotics for 14 days Continue aggressive bowel regimen to prevent constipation Continue fall precautions All meals on chair sitting upright at 90 degrees to prevent aspiration Return to ER if worsening fever chills shortness of breath, diarrhea, bleeding Review risk and side effect profile of medications including antibiotics. Side effect may include mild to severe reaction including rash, diarrhea, cdiff and even which can be prevented by close follow-up with PCP Continue diet and activity as advised Discussed importance of medication adherence Please review medication list with patient prior to discharge Please schedule follow-up with PCP/Providers prior to discharge and provide printouts Portions of this chart may have been created with [employer] voice recognition software. Occasional wrong-word or ?sound-like? substitutions may have occurred due to the inherent limitations of voice recognition software. Please read the chart carefully and recognize, using context, where the substitutions have occurred. CC- PCP Prescriptions: Amoxicillin 500 mg PO Q12H #28 tablet Other Amb Orders: Walker Location: Determined By Patient - Follow up Plan Follow up with: Donna Bianchi ARNP [Primary Care Provider] - Disposition: Home, Self-Care Prognosis: Good Rehab Potential: Fair I certify that the patient requires SNF services: No Overall status at discharge: patient is progressing back to baseline Medical - DS: Qual - VTE Deep Vein Thrombosis/Pulmonary Embolism Present on Admission: No
[2016-03-20] MEDS: cefTRIAXone 1 GM in DEXTROSE 5% IN WATER 50 ML IV SCH (15:00)
== END 2016-03-20 13:40 | disposition home or self-care (01) ==
LOC: ED 18:09 → MEDSUR 23:00
PROVIDERS: ADMIT Internal Medicine; ATTEND Internal Medicine

== ENCOUNTER 2019-06-03 15:22 | Inpatient (IN) ==
--- NOTE | 2019-06-03 15:40 | Emergency Department Note ---
SOB HPI - General Chief Complaint: Shortness of Breath/Dyspnea Stated Complaint: shortness of breath Time Seen by Provider: 06/03/19 15:29 Source: patient, EMS Mode of arrival: ambulatory Limitations: no limitations - History of Present Illness This patient comes in from home because of cough fever shortness of breath that started last night. Also having some urinary frequency but no dysuria. No abdominal pain nausea or vomiting. No chest pain. - Related Data Home Medications Medication Instructions Recorded Confirmed Tamsulosin [Flomax] 0.4 mg PO HS 03/18/16 06/03/19 busPIRone [Buspar] 7.5 mg PO BID 03/18/16 06/03/19 albuterol sulfate 90 mcg/actuation 2 puff INHALATION QID PRN g 03/28/16 06/03/19 aerosol inhaler cholecalciferol (vitamin D3) 125 5,000 unit PO QDAY cap 04/05/16 06/03/19 mcg (5,000 unit) capsule coenzyme Q10 300 mg capsule 300 mg PO QDAY 04/05/16 06/03/19 omega-3 fatty acids 1,000 mg 1,000 mg PO QDAY 04/05/16 06/03/19 capsule lovastatin 40 mg tablet 80 mg PO HS tab 05/07/19 06/03/19 Hydrochlorothiazide [Oretic] 25 mg PO DAILY 06/03/19 06/03/19 Ranitidine HCl [[employer]] 150 mg PO BID 06/03/19 06/03/19 Previous Rx's Medication Instructions Recorded oxybutynin chloride 5 mg 5 mg PO QDAY #90 tab 09/17/18 tablet,extended release 24 hr warfarin 3 mg tablet 3 mg PO DAILY #90 tab 01/08/19 finasteride 5 mg tablet 5 mg PO DAILY #90 tab 03/12/19 losartan 100 1 tab PO DAILY #90 tab 03/27/19 mg-hydrochlorothiazide 25 mg tablet sertraline 100 mg tablet 100 mg PO QDAY #90 tab 04/09/19 tiotropium bromide 18 mcg capsule See Rx Instructions .ROUTE QDAY 04/10/19 with inhalation device #90 puff clonidine HCl 0.2 mg tablet 0.2 mg PO BID #60 tab 04/15/19 Allergies Allergy/AdvReac Type Severity Reaction Status Date / Time No Known Drug Allergies Allergy Verified 06/03/19 15:32 Review of Systems All systems ED: reviewed and negative except as stated. Past Medical History - Past Medical History [facility] Narrative: Medical History (Last Updated 05/07/19 @ 12:10 by Tasha Selby) History of pacemaker (Chronic ~04/2018) Cervical disc disorder with radiculopathy (Chronic) Encounter for therapeutic drug level monitoring (Chronic) Hypertension, essential, benign (Chronic) Benign prostatic hyperplasia with lower urinary tract symptoms (Chronic) Actinic keratosis (Chronic) Rhinitis, allergic (Chronic) Anxiety (Chronic) SOB (shortness of breath) (Chronic) Peripheral edema (Chronic) Hx of congestive heart failure (Chronic) Diabetes mellitus (Chronic) Murmur (Chronic) PVD (peripheral vascular disease) (Chronic) Physical exam, routine (Chronic) Aortic stenosis (Chronic) Impacted cerumen, bilateral (Chronic) Obese (Chronic) Alcohol abuse (Chronic) History of chest x-ray (Chronic 03/17/16) Metabolic disorder (Chronic) Hypothyroidism (Chronic) Depression with anxiety (Chronic) Fatigue (Chronic) Neck pain (Chronic) Back pain (Chronic) Shoulder pain (Chronic) Depressed affect (Chronic) Sepsis (Chronic) Atrial fibrillation (Chronic) BPH (benign prostatic hyperplasia) (Chronic) Renal failure (Chronic) Depression (Chronic) Hypertension (Chronic) Enterococcus UTI (Chronic) Urinary incontinence (Chronic) Urinary urgency (Chronic) Urinary tract infection (Chronic) Prostate infection (Chronic) Cold (Chronic) History of Coumadin therapy (Chronic) Hyperlipidemia (Chronic) Abscess (Chronic) Sleep apnea (Chronic) History of echocardiogram (Chronic) Pulmonary hypertension (Chronic) AAA (abdominal aortic aneurysm) (Chronic) History of MRI of lumbar spine (Chronic) History of PFTs (Chronic) COPD (chronic obstructive pulmonary disease) (Chronic) Past Surgical History (Last Updated 05/07/19 @ 12:10 by Tasha Selby) History of back surgery (Chronic) History of hernia surgery (Chronic) S/P bilateral cataract extraction (Chronic) S/P shoulder surgery (Chronic) Status post transcatheter aortic valve replacement (Chronic ~07/06/18) Family History (Last Reviewed 10/24/18 @ 14:02 by Lyssa Colon RN) Other Hypertension No pertinent family history - Social History smoking status: Former smoker Alcohol use: Reports: Occasionally Drug use: Reports: none Physical Exam Limitations: no limitations General appearance: alert Head: atraumatic Eye: Present: normal appearance ENT: Present: normal exam Neck: Present: normal inspection Chest: Present: normal inspection Respiratory: Present: normal lung sounds bilaterally Cardiovascular: Present: regular rate, normal rhythm, normal heart sounds Abdominal: Present: soft. Absent: distention, tenderness Neurological: Present: alert Psychiatric: Present: normal affect Skin: Present: warm, dry Course Vital Signs Temperature 99.3 F H 06/03/19 15:22 Pulse Rate 75 06/03/19 15:22 Respiratory Rate 20 06/03/19 15:22 Blood Pressure 160/77 06/03/19 15:22 Pulse Oximetry (%) 96 06/03/19 15:22 Temperature 99.3 F H 06/03/19 15:22 Pulse Rate 78 06/03/19 19:11 Respiratory Rate 23 H 06/03/19 19:11 Blood Pressure 127/54 06/03/19 19:11 Pulse Oximetry (%) 86 L 06/03/19 19:11 Shortness of Breath/Dyspnea - [facility] Narrative Medical decision making narrative: This patient has a left lower lobe pneumonia and feels weak and has a borderline low O2 sat. He will be admitted to the hospital. We gave him Levaquin and Rocephin and Zosyn IV. - Lab Data Lab results reviewed: Yes I reviewed the patient's lab results. Result diagrams: 06/03/19 15:56 06/03/19 15:55 Lab Results 06/03/19 06/03/19 06/03/19 Range/Units 15:55 15:55 15:55 WBC (4.50-11.00) K/mcL RBC (4.63-6.08) M/mcL Hgb (13.7-17.5) g/dL Hct (40.1-51.0) % MCV (80.0-100.0) fL MCH (26.0-34.0) pg MCHC (31.0-36.0) g/dL RDW (11.5-14.5) % Plt Count (140-440) K/mcL MPV (7.4-10.4) fL Gran % (38.0-78.0) % Lymph % (Auto) (15.5-49.0) % [place] % (Auto) (1.0-12.0) % Eos % (Auto) (0.0-7.0) % Baso % (Auto) (0.0-2.0) % Gran # (1.80-8.00) K/mcL Lymph # (Auto) (1.50-4.80) K/mcL [place] # (Auto) (0.10-0.90) K/mcL Eos # (Auto) (0.00-0.70) K/mcL Baso # (Auto) (0.00-0.30) K/mcL VBG Lactic Acid 1.1 (0.5-2.0) mmol/L Sodium 133 (133-145) mmol/L Potassium 4.5 (3.3-5.1) mmol/L Chloride 96 (96-108) mmol/L Carbon Dioxide 27 (22-30) mmol/L Anion Gap 10.0 (8-16) BUN 18 (8-23) mg/dl Creatinine 1.1 (0.7-1.2) mg/dl GFR Calculation 62 Glucose 111 H (70-105) mg/dL Calcium 9.4 (8.6-10.4) mg/dl Total Bilirubin 0.8 (0.0-1.0) mg/dL AST 23 (0-37) U/l ALT 15 (0-40) U/l Alkaline Phosphatase 76 (39-117) U/L Troponin T 0.03 (0-0.03) ng/ml NT-Pro-B Natriuret Pep 1694.0 H (0-450) pg/ml Total Protein 7.2 (5.9-8.4) gm/dL Albumin 4.0 (3.2-5.2) gm/dL Globulin 3.2 (2.2-3.7) gm/dL Albumin/Globulin Ratio 1.3 (1.0-2.3) 06/03/19 Range/Units 15:56 WBC 11.1 H (4.50-11.00) K/mcL RBC 4.80 (4.63-6.08) M/mcL Hgb 14.8 (13.7-17.5) g/dL Hct 44.7 (40.1-51.0) % MCV 93.1 (80.0-100.0) fL MCH 30.8 (26.0-34.0) pg MCHC 33.1 (31.0-36.0) g/dL RDW 13.4 (11.5-14.5) % Plt Count 129 L (140-440) K/mcL MPV 10.6 H (7.4-10.4) fL Gran % 71.1 (38.0-78.0) % Lymph % (Auto) 9.0 L (15.5-49.0) % [place] % (Auto) 19.4 H (1.0-12.0) % Eos % (Auto) 0.1 (0.0-7.0) % Baso % (Auto) 0.4 (0.0-2.0) % Gran # 7.90 (1.80-8.00) K/mcL Lymph # (Auto) 1.00 L (1.50-4.80) K/mcL [place] # (Auto) 2.15 H (0.10-0.90) K/mcL Eos # (Auto) 0.01 (0.00-0.70) K/mcL Baso # (Auto) 0.04 (0.00-0.30) K/mcL VBG Lactic Acid (0.5-2.0) mmol/L Sodium (133-145) mmol/L Potassium (3.3-5.1) mmol/L Chloride (96-108) mmol/L Carbon Dioxide (22-30) mmol/L Anion Gap (8-16) BUN (8-23) mg/dl Creatinine (0.7-1.2) mg/dl GFR Calculation Glucose (70-105) mg/dL Calcium (8.6-10.4) mg/dl Total Bilirubin (0.0-1.0) mg/dL AST (0-37) U/l ALT (0-40) U/l Alkaline Phosphatase (39-117) U/L Troponin T (0-0.03) ng/ml NT-Pro-B Natriuret Pep (0-450) pg/ml Total Protein (5.9-8.4) gm/dL Albumin (3.2-5.2) gm/dL Globulin (2.2-3.7) gm/dL Albumin/Globulin Ratio (1.0-2.3) - Radiology Data Radiology results reviewed: Yes I reviewed the patient's radiology results. Disposition Pt seen by DIRECTOR OF RETAIL MERCHANDISING/PA only: No Clinical Impression: Community acquired pneumonia Disposition: Xfer As Inpt ([facility]) Condition: Fair Referrals: Donna Bianchi ARNP [Primary Care Provider] - Time of Disposition: 19:34
[2019-06-03] MEDS ORDERED: PIPERACILLIN SODIUM/TAZOBACTAM 3.375 GM in DEXTROSE 5% IN WATER 50 ML IV ONE (16:16)
[2019-06-03] MEDS ORDERED: cefTRIAXone 2 GM in DEXTROSE 5% IN WATER 50 ML IV ONE (16:16)
[2019-06-03] MEDS ORDERED: LEVOFLOXACIN 750 MG/150 ML BAG IV ONE (16:16)
--- NOTE | 2019-06-03 16:16 | XRay Report ---
CLINICAL INFORMATION: sob COMPARISON: 10/22/2018 FINDINGS: Moderate cardiomegaly is unchanged. Pacemaker leads in stable satisfactory position. Mediastinum and pulmonary vessels are normal. Moderate patchy infiltrate has developed in the left base. Left diaphragm shows mild chronic elevation. IMPRESSION: Moderate patchy infiltrate in the left base likely pneumonia. Small left pleural effusion. Chronic elevation left diaphragm stable Moderate cardiomegaly - stable Interpreted and Authenticated by: Ten Be 06/03/19
[2019-06-03 16:27] LABS: Basophils # (Auto) 0.04 K/mcL (0.00-0.30); Basophils % (Auto) 0.4 % (0.0-2.0); Eosinophils # (Auto) 0.01 K/mcL (0.00-0.70); Eosinophils % (Auto) 0.1 % (0.0-7.0); Granulocytes % (Auto) 71.1 % (38.0-78.0); Hematocrit 44.7 % (40.1-51.0); Hemoglobin 14.8 g/dL (13.7-17.5); Mean Cell Volume 93.1 fL (80.0-100.0); Mean Corpuscular HGB Conc 33.1 g/dL (31.0-36.0); Mean Platelet Volume 10.6 fL (7.4-10.4); Monocytes # (Auto) 2.15 K/mcL (0.10-0.90); Monocytes % (Auto) 19.4 % (1.0-12.0); Platelet Count 129 K/mcL (140-440); Red Cell Distribution Width 13.4 % (11.5-14.5); WBC 11.1 K/mcL (4.50-11.00)
[2019-06-03] MEDS: LACTATED RINGERS 1,000 ML IV SCH ×2 (16:30→20:29)
[2019-06-03 16:52] LABS: ALT/SGPT 15 U/l (0-40); AST/SGOT 23 U/l (0-37); Albumin/Globulin Ratio 1.3 (1.0-2.3); Alkaline Phosphatase 76 U/L (39-117); Bilirubin,Total 0.8 mg/dL (0.0-1.0); Blood Urea Nitrogen 18 mg/dl (8-23); Calcium 9.4 mg/dl (8.6-10.4); Carbon Dioxide 27 mmol/L (22-30); Chloride 96 mmol/L (96-108); Globulin 3.2 gm/dL (2.2-3.7); Glomerular Filtration Rate 62; Glucose 111 mg/dL (70-105)
--- NOTE | 2019-06-03 19:58 | Internal Med History&Physical ---
Medical - H&P: [facility] Patient information: Note initiated : 06/03/19 at 7:53 pm Service Date, if different from initiated Date: [] Patient: Ernesto Murillo a 83 y/o M admitted on for shortness of breath. Chief Complaint: [] Chief complaint: Shortness of breath History of present illness: Mr. Murillo is a 83 year old M with a history of COPD/HTN/anxiety disorder who presents to the ER with worsening shortness of breath that started this morning. Patient states that he has been his baseline since state of health and was feeling fine until yesterday. He denied aspiration episode/symptoms of ort hopnea the previous night. This morning he woke up and was unable to catch her breath. He denies associated expectoration. With worsening symptoms he presents to the ER. Initial work-up was consistent with fever of 102 along with leukocytosis and left lower lobe infiltrates. Patient was started on antibiotic coverage. Respiratory cultures were sent. Subsequently hospitalist service was consulted. At the time evaluation patient is short of breath and unable to talk in full sentences. He denies aspiration episodes. He denies recent travel or exposure to sick contacts. His last hospitalization was in June at [facility] for aortic valve replacement . He denies chest pain, palpitation, diaphoresis, lightheadedness dizziness. Review of systems A 10 point review system was performed and is negative except for ones cussed above Medical - H&P: PMH Medical history: History of chest x-ray (Chronic 03/17/16) Metabolic disorder (Chronic) Hypothyroidism (Chronic) Depression with anxiety (Chronic) Fatigue (Chronic) Neck pain (Chronic) Back pain (Chronic) some days better Shoulder pain (Chronic) Depressed affect (Chronic) Sepsis (Chronic) Atrial fibrillation (Chronic) BPH (benign prostatic hyperplasia) (Chronic) Renal failure (Chronic) Depression (Chronic) Hypertension (Chronic) Enterococcus UTI (Chronic) Urinary incontinence (Chronic) Urinary urgency (Chronic) Urinary tract infection (Chronic) Prostate infection (Chronic) Cold (Chronic) issues with coughing History of Coumadin therapy (Chronic) Hyperlipidemia (Chronic) Abscess (Chronic) C6/7 03/24, DDD C-S w/spinal stenosis Sleep apnea (Chronic) sleep study, 2006, C PAP History of echocardiogram (Chronic) 06/29-mild to moderate LV hypertrophy Pulmonary hypertension (Chronic) 09/01-EF 65% AAA (abdominal aortic aneurysm) (Chronic) 09/01-small History of MRI of lumbar spine (Chronic) 08/30-multiple level degeneration History of PFTs (Chronic) 09/01-moderately severe restriction COPD (chronic obstructive pulmonary disease) (Chronic) Surgical History S/P bilateral cataract extraction (Acute) S/P shoulder surgery (Acute) right shoulder History of back surgery (Chronic) History of hernia surgery (Chronic) Family History Other Hypertension No pertinent family history Social History marital status: occupational status: retired occupation: Retired 05/22, very busy continues to work part-time smoking status: Former smoker alcohol intake frequency: 0-2 drinks per day seatbelt use: always Medical - H&P: Meds Home Medications Medication Instructions Recorded Confirmed Type Tamsulosin [Flomax] 0.4 mg PO HS 03/18/16 06/03/19 History busPIRone [Buspar] 7.5 mg PO BID 03/18/16 06/03/19 History albuterol sulfate 90 mcg/actuation 2 puff INHALATION DAILY g 03/28/16 06/03/19 History aerosol inhaler cholecalciferol (vitamin D3) 125 5,000 unit PO QDAY cap 04/05/16 06/03/19 History mcg (5,000 unit) capsule coenzyme Q10 300 mg capsule 300 mg PO QDAY 04/05/16 06/03/19 History omega-3 fatty acids 1,000 mg 1,000 mg PO HS 04/05/16 06/03/19 History capsule losartan 100 1 tab PO DAILY #90 tab 03/27/19 06/03/19 Rx mg-hydrochlorothiazide 25 mg tablet sertraline 100 mg tablet 100 mg PO QDAY #90 tab 04/09/19 06/03/19 Rx tiotropium bromide 18 mcg capsule See Rx Instructions .ROUTE QDAY 04/10/19 06/03/19 Rx with inhalation device #90 puff clonidine HCl 0.2 mg tablet 0.2 mg PO BID #60 tab 04/15/19 06/03/19 Rx lovastatin 40 mg tablet 80 mg PO HS tab 05/07/19 06/03/19 History Finasteride [Proscar] 5 mg PO HS 06/03/19 06/03/19 History Hydrochlorothiazide [Oretic] 25 mg PO DAILY 06/03/19 06/03/19 History Oxybutynin Chloride [Oxybutynin 5 mg PO HS 06/03/19 06/03/19 History Chloride ER] Ranitidine HCl [[employer]] 150 mg PO BID 06/03/19 06/03/19 History Warfarin [Coumadin] 3 mg PO HS 06/03/19 06/03/19 History Allergies Allergy/AdvReac Type Severity Reaction Status Date / Time No Known Drug Allergies Allergy Verified 06/03/19 15:32 Medical - H&P: Exam - Constitutional Vitals: Temp Pulse Resp BP Pulse Ox 99.3 F H 78 23 H 127/54 86 L 06/03/19 15:22 06/03/19 19:11 06/03/19 19:11 06/03/19 19:11 06/03/19 19:11 General appearance: morbidly obese Exam: Anxious and labored Head normocephalic Oral cavity dry No ear nose discharge Neck no lymphadenopathy S1-S2 occasionally irregular Pacemaker Diminished breath sounds bases Late inspiratory crackle left side Abdomen soft nontender Lower extremity no sinus clubbing no joint swelling Skin no suspicious lesion Psych alert cooperative but anxious Neuro nonfocal Medical - H&P: Reslt - Labs CBC & Chem 7: 06/04/19 06:10 06/04/19 06:10 Labs: Short CBC 06/03/19 Range/Units 15:56 WBC 11.1 H (4.50-11.00) K/mcL Hgb 14.8 (13.7-17.5) g/dL Hct 44.7 (40.1-51.0) % Plt Count 129 L (140-440) K/mcL BMP 06/03/19 15:55 Sodium 133 Potassium 4.5 Chloride 96 Carbon Dioxide 27 BUN 18 Creatinine 1.1 Glucose 111 H Calcium 9.4 Cardiac Enzymes 06/03/19 Range/Units 15:55 Troponin T 0.03 (0-0.03) ng/ml Liver Function 06/03/19 Range/Units 15:55 Total Bilirubin 0.8 (0.0-1.0) mg/dL AST 23 (0-37) U/l ALT 15 (0-40) U/l Alkaline Phosphatase 76 (39-117) U/L Albumin 4.0 (3.2-5.2) gm/dL Medical - H&P: A/P (1) Left lower lobe pneumonia Current visit: Yes Status: Acute * Left lower lobe pneumonia-PSI score over 100. Initiate antibiotic coverage for community-acquired pathogen. Pulmonary toilet. Inpatient admission. Check respiratory panel * Early sepsis -continue management per guidelines. 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 On pacemaker. Anticoagulation on Coumadin for CVA prophylaxis. * hyperlipidemia on statin * Anxiety depression continue sertraline/BuSpar * BPH continue tamsulosin/finasteride * Anticoagulation on Coumadin * DNR PLAN * Inpatient admit * Antibiotic coverage * Monitor renal function * Resume home medications for pre-existing medical issues * Coumadin dosing based on INR * PT OT nutrition support
[2019-06-03 20:32] LABS: Appearance,Urine CLEAR; Bacteria,Urine 0 /hpf (0); Bilirubin,Urine NEG (NEG); Color,Urine STRAW; Culture Indicated,Urine NO; Glucose,Urine (UA) NEGATIVE (NEG); Ketones,Urine NEG (NEG); Leukocyte Esterase,Urine NEG /uL (NEG); Nitrate,Urine NEG (NEG); Protein,Urine NEG (NEG); Specific Gravity,Urine 1.011 (1.000-1.035); Urine Blood 0.03 mg/dL (<0.03); Urine RBC 5 /hpf (0-1); Urine Squamous Epithelial Cell < 1 /hpf (0-4); Urine Transitional Epi Cells < 1 /hpf (0-2); Urine WBC 0 /hpf (0-4); Urobilinogen,Urine NEG (NEG)
[2019-06-03] MEDS ORDERED: MELATONIN 3 MG TABLET PO PRN (21:06)
[2019-06-03] MEDS ORDERED: DEXTROSE 31 GM ORAL.SUSP PO PRN (21:06)
[2019-06-03] MEDS ORDERED: ACETAMINOPHEN 650 MG/65 ML BOTTLE IV PRN (21:06)
[2019-06-03] MEDS ORDERED: DEXTROSE 50% 50 ML VIAL IV PRN (21:06)
[2019-06-03] MEDS ORDERED: BISACODYL 10 MG SUPP.RECT PR PRN (21:06)
[2019-06-03] MEDS ORDERED: MAGNESIUM SULFATE 2 GM/50 ML BAG IV PRN (21:06)
[2019-06-03] MEDS ORDERED: ONDANSETRON 4 MG/2 ML VIAL IV PRN (21:06)
[2019-06-03] MEDS ORDERED: POTASSIUM CHLORIDE 20 MEQ PACKET PO PRN (21:06)
[2019-06-03] MEDS ORDERED: POLYETHYLENE GLYCOL 3350 17 GM PACKET PO PRN (21:06)
[2019-06-03] MEDS ORDERED: ONDANSETRON 4 MG ODT TABLET SL PRN (21:06)
[2019-06-03] MEDS: 0.9 % SODIUM CHLORIDE 1,000 ML IV SCH (21:10)
[2019-06-03] MEDS ORDERED: BUDESONIDE 0.5 MG/2 ML AMPUL.NEB NEB ONE (21:49)
[2019-06-03] MEDS ORDERED: IPRATROPIUM/ALBUTEROL 3 ML AMPUL.NEB NEB ONE (21:50)
[2019-06-03] MEDS: AZITHROMYCIN 500 MG in DEXTROSE 5% IN WATER 250 ML IV SCH (22:43)
[2019-06-03] MEDS: ACETAMINOPHEN 325 MG TABLET PO PRN (22:57)
[2019-06-03] MEDS: cloNIDine HCL 0.1 MG TABLET PO SCH (23:22)
[2019-06-03] MEDS: busPIRone 5 MG TABLET PO SCH (23:22)
[2019-06-03] MEDS: DOCUSATE SODIUM 100 MG CAPSULE PO SCH (23:22)
[2019-06-03] MEDS: TAMSULOSIN 0.4 MG CAPSULE PO SCH (23:23)
[2019-06-03] MEDS: SENNOSIDES/DOCUSATE SODIUM 1 TAB TABLET PO SCH (23:23)
[2019-06-03] MEDS: 0.9 % SODIUM CHLORIDE 10 ML SYRINGE IV SCH (23:24)
[2019-06-03] MEDS: BUDESONIDE 0.5 MG/2 ML AMPUL.NEB NEB SCH (23:24)
[2019-06-03] MEDS: HEPARIN 5,000 UNIT/ML VIAL SQ SCH (23:48)
[2019-06-03] MEDS: INSULIN LISPRO 1 UNIT/0.01 ML UNIT SQ SCH (23:51)
[2019-06-04] MEDS: 0.9 % SODIUM CHLORIDE 10 ML SYRINGE IV SCH ×3 (07:28→21:07)
[2019-06-04] MEDS: INSULIN LISPRO 1 UNIT/0.01 ML UNIT SQ SCH ×4 (07:28→21:05)
[2019-06-04 07:37] LABS: Hematocrit 43.4 % (40.1-51.0); Hemoglobin 14.2 g/dL (13.7-17.5); Mean Cell Volume 94.3 fL (80.0-100.0); Mean Corpuscular HGB Conc 32.7 g/dL (31.0-36.0); Platelet Count 113 K/mcL (140-440); Red Cell Distribution Width 13.6 % (11.5-14.5); WBC 11.9 K/mcL (4.50-11.00)
[2019-06-04] MEDS: HEPARIN 5,000 UNIT/ML VIAL SQ SCH ×2 (08:02→21:02)
[2019-06-04] MEDS: cloNIDine HCL 0.1 MG TABLET PO SCH ×2 (08:02→20:58)
[2019-06-04] MEDS: busPIRone 5 MG TABLET PO SCH ×2 (08:02→20:58)
[2019-06-04] MEDS: OXYBUTYNIN CHLORIDE 5 MG TAB.XL.24H PO SCH (08:03)
[2019-06-04] MEDS: FINASTERIDE 5 MG TABLET PO SCH (08:03)
[2019-06-04] MEDS: FAMOTIDINE 20 MG TABLET PO SCH ×2 (08:03→20:59)
[2019-06-04] MEDS: SERTRALINE 100 MG TABLET PO SCH (08:03)
[2019-06-04] MEDS: DOCUSATE SODIUM 100 MG CAPSULE PO SCH ×2 (08:03→20:58)
[2019-06-04] MEDS: MULTIVIT,THER IRON,CA,FA & MIN 1 TABLET PO SCH (08:03)
[2019-06-04] MEDS: ACETAMINOPHEN 325 MG TABLET PO PRN (08:03)
[2019-06-04] MEDS: HYDROCHLOROTHIAZIDE 25 MG TABLET PO SCH (08:03)
[2019-06-04 08:09] LABS: INR 2.1 (0.9-1.1); Prothrombin Time 24.4 sec (11.9-14.5)
[2019-06-04 08:59] LABS: ALT/SGPT 16 U/l (0-40); AST/SGOT 25 U/l (0-37); Albumin 3.6 gm/dL (3.2-5.2); Albumin/Globulin Ratio 1.1 (1.0-2.3); Alkaline Phosphatase 68 U/L (39-117); Bilirubin,Direct < 0.2 mg/dL (0.0-0.3); Bilirubin,Total 0.8 mg/dL (0.0-1.0); Blood Urea Nitrogen 19 mg/dl (8-23); Carbon Dioxide 24 mmol/L (22-30); Chloride 96 mmol/L (96-108); Globulin 3.4 gm/dL (2.2-3.7); Glomerular Filtration Rate 56; Glucose 106 mg/dL (70-105); Lactate Dehydrogenase 331 U/L (94-250); Phosphorous 2.4 mg/dL (2.7-4.5); Triglycerides 76 mg/dl (<150)
[2019-06-04] MEDS: IPRATROPIUM/ALBUTEROL 3 ML AMPUL.NEB NEB PRN ×2 (09:00→21:14)
[2019-06-04] MEDS: BUDESONIDE 0.5 MG/2 ML AMPUL.NEB NEB SCH ×2 (09:00→21:13)
[2019-06-04 09:14] LABS: Band Neutrophils % 6 % (0-10); Eosinophils % (Manual) 1 % (0-7); Lymphocytes % 10 % (15-49); Monocytes % (Manual) 20 % (1-12); Platelet Estimate DECREASED (NORMAL); RBC Morphology NORMAL (NORMAL); Segmented Neutrophils % 63 % (38-78)
[2019-06-04] MEDS: cefTRIAXone 2 GM in DEXTROSE 5% IN WATER 50 ML IV SCH (09:37)
--- NOTE | 2019-06-04 11:05 | Internal Med Progress Note ---
Medical - PN: Subj Patient information: Note initiated : 06/04/19 at 11:03 am Service Date, if different from initiated Date: [] Patient: Ernesto Murillo a 83 y/o M admitted on 06/03/19 for shortness of breath. Chief Complaint: [] Interval history: Mr. Murillo is a 83 year old M with a history of COPD/HTN/anxiety disorder who presents to the ER with worsening shortness of breath that started this morning. Patient states that he has been his baseline since state of health and was feeling fine until yesterday. He denied aspiration episode/symptoms of orthopnea the previous night. This morning he woke up and was unable to catch her breath. He denies associated expectoration. With worsening symptoms he presents to the ER. Initial work-up was consistent with fever of 102 along with leukocytosis and left lower lobe infiltrates. Patient was started on antibiotic coverage. Respiratory cultures were sent. Subsequently hospitalist service was consulted. At the time evaluation patient is short of breath and unable to talk in full sentences. He denies aspiration episodes. He denies recent travel or exposure to sick contacts. His last hospitalization was in June at [facility] for aortic valve replacement . He denies chest pain, palpitation, diaphoresis, lightheadedness dizziness. 06/03-patient stable overnight. On 2 L oxygen. No significant changes but short of breath. T-max 102. SARS virus RNA pending. Appears anxious - Constitutional Vitals: Vital Signs Temp Pulse Resp BP Pulse Ox 99.7 F H 69 16 128/78 94 06/04/19 09:30 06/04/19 09:14 06/04/19 09:14 06/04/19 08:11 06/04/19 09:16 Period Temp Pulse Resp BP Sys/Mcneill Pulse Ox Last 24 Hr 99.3 F-102.7 F 53-83 12-33 114-177/53-90 84-96 Intake and Output 06/03/19 06/04/19 06/04/19 21:59 05:59 13:59 Intake Total 1250 0 300 Output Total 1 2 Balance 1250 -1 298 Weight 250 lb 12.8 oz 250 lb 12.8 oz Intake & Output: Intake & Output 06/03/19 06/04/19 06/04/19 21:59 05:59 13:59 Intake Total 1250 0 300 Output Total 1 2 Balance 1250 -1 298 Weight 250 lb 12.8 oz 250 lb 12.8 oz Intake: IV 1250 Lactated Ringers 1,000 ml @ 250 1000 mls/hr IV .Q4H [facility] Rx#: [id number] Zosyn 3.375 gm In Dextrose 5% 50 in Water 50 ml @ 100 mls/hr IV ONCE ONE Rx#:[id number] Rocephin 2 gm In Dextrose 5% in 50 Water 50 ml @ 100 mls/hr IV ONCE ONE Rx#:[id number] Oral 0 300 Output: Void Amount 0 # of times incontinent of urine 1 2 Other: Meal Breakfast Percent of Meal Consumed 75% Feeding Ability Independent Urine Appearance Clear Straight Clear Urine Color Straw Straight Straw Urine Odor Strong General appearance: no acute distress Exam: Alert oriented Labored breathing Anxious Pacemaker left anterior chest Medical - PN: Obj Da - Labs CBC & Chem 7: 06/05/19 05:25 06/05/19 05:25 Labs: Abnormal Lab Results 06/04/19 06/04/19 06/04/19 07:14 06:10 06:10 WBC 11.9 H RBC 4.60 L Plt Count 113 L MPV 11.0 H Lymph % (Auto) [place] % (Auto) Lymph # (Auto) [place] # (Auto) Lymphocytes % 10 L Monocytes % (Manual) 20 H Platelet Estimate Decreased A PT 24.4 H INR 2.1 H Glucose 106 H Phosphorus 2.4 L GGT 68 H Lactate Dehydrogenase 331 H NT-Pro-B Natriuret Pep Urine Occult Blood Urine RBC 06/03/19 06/03/19 06/03/19 18:20 15:56 15:55 WBC 11.1 H RBC Plt Count 129 L MPV 10.6 H Lymph % (Auto) 9.0 L [place] % (Auto) 19.4 H Lymph # (Auto) 1.00 L [place] # (Auto) 2.15 H Lymphocytes % Monocytes % (Manual) Platelet Estimate PT INR Glucose 111 H Phosphorus GGT Lactate Dehydrogenase NT-Pro-B Natriuret Pep 1694.0 H Urine Occult Blood 0.03 A Urine RBC 5 H Meds: Medications Acetaminophen (Tylenol) 650 mg PO Q4-6HP PRN; Protocol PRN Reason: Per Pain Protocol/Fever > 101 Last Admin: 06/04/19 08:03 Dose: 650 mg Documented by: Albuterol/Ipratropium (Duoneb) 3 ml NEB Q4HP PRN PRN Reason: Shortness Of Breath Last Admin: 06/04/19 09:00 Dose: 3 ml Documented by: Bisacodyl (Dulcolax) 10 mg [place] Q2-3DAYS PRN PRN Reason: Constipation Budesonide (Pulmicort) 0.5 mg NEB Q12 [facility] Last Admin: 06/04/19 09:00 Dose: 0.5 mg Documented by: Buspirone HCl (Buspar) 7.5 mg PO BID [facility] Last Admin: 06/04/19 08:02 Dose: 7.5 mg Documented by: Clonidine HCl (Catapres) 0.2 mg PO BID [facility] Last Admin: 06/04/19 08:02 Dose: 0.2 mg Documented by: Dextrose (Dextrose 50%) 0 ml IV UD PRN PRN Reason: Hypoglycemia Diagnostic Test (Pha) (Accu-Chek) 1 each FS ACHS [facility] Last Admin: 06/04/19 07:28 Dose: 1 each Documented by: Docusate Sodium (Colace) 100 mg PO BID [facility] Last Admin: 06/04/19 08:03 Dose: 100 mg Documented by: Famotidine (Pepcid) 20 mg PO BID [facility] Last Admin: 06/04/19 08:03 Dose: 20 mg Documented by: Finasteride (Proscar) 5 mg PO DAILY [facility] Last Admin: 06/04/19 08:03 Dose: 5 mg Documented by: Glucose (Insta-Glucose) 15 gm PO PRN PRN PRN Reason: Hypoglycemia Heparin Sodium (Porcine) (Heparin) 5,000 unit SQ Q12 [facility] Last Admin: 06/04/19 08:02 Dose: 5,000 unit Documented by: Hydrochlorothiazide (Oretic) 25 mg PO DAILY [facility] Last Admin: 06/04/19 08:03 Dose: 25 mg Documented by: Sodium Chloride (Sodium Chloride 0.9%) 1,000 mls @ 50 mls/hr IV .Q20H [facility] Stop: 06/06/19 09:05 Last Admin: 06/03/19 21:10 Dose: 50 mls/hr Documented by: Acetaminophen (Ofirmev) 650 mg in 65 mls @ 130 mls/hr IV Q6HP PRN; Protocol PRN Reason: Per Pain Protocol/Fever > 101 Magnesium Sulfate (Magnesium Sulfate) 2 gm in 50 mls @ 50 mls/hr IV UD PRN PRN Reason: MG = or < 1.7 Ceftriaxone Sodium 2 gm/ (Dextrose) 50 mls @ 100 mls/hr IV Q24H [facility]; Protocol Last Admin: 06/04/19 09:37 Dose: 100 mls/hr Documented by: Azithromycin 500 mg/ Dextrose 250 mls @ 250 mls/hr IV Q24H [facility]; Protocol Stop: 06/05/19 23:59 Last Admin: 06/03/19 22:43 Dose: 250 mls/hr Documented by: Insulin Human Lispro (Humalog) 0 unit SQ ACHS [facility]; Protocol Last Admin: 06/04/19 07:28 Dose: Not Given Documented by: Iron Carb/Multivit/Senior Qc Technician/Folic Acid (Multivitamin W/Minerals) 1 tab PO DAILY [facility] Last Admin: 06/04/19 08:03 Dose: 1 tab Documented by: Melatonin (Melatonin 3mg Tablet) 3 mg PO HSP PRN PRN Reason: Insomnia Ondansetron HCl (Zofran Odt) 4 mg SL Q4-6HP PRN; Protocol PRN Reason: Nausea And Vomiting Ondansetron HCl (Zofran) 4 mg IV Q4-6HP PRN; Protocol PRN Reason: Nausea And Vomiting Oxybutynin Chloride (Ditropan Xl) 5 mg PO QDAY [facility] Last Admin: 06/04/19 08:03 Dose: 5 mg Documented by: Polyethylene Glycol (Miralax) 17 gm PO DAILYP PRN PRN Reason: Constipation Potassium Chloride (Klor-Con) 40 meq PO DAILYP PRN PRN Reason: K+ < 3.5 Senna/Docusate Sodium (Senna Plus Tablet) 1 tab PO [facility] Last Admin: 06/03/19 23:23 Dose: Not Given Documented by: Sertraline HCl (Zoloft) 100 mg PO QDAY [facility] Last Admin: 06/04/19 08:03 Dose: 100 mg Documented by: Simvastatin (Zocor) 20 mg PO [facility] Sodium Chloride (Saline Flush) 10 ml IV Q8 [facility] Last Admin: 06/04/19 07:28 Dose: 10 ml Documented by: Tamsulosin HCl (Flomax) 0.4 mg PO [facility] Last Admin: 06/03/19 23:23 Dose: Not Given Documented by: Warfarin Sodium (Coumadin) 3 mg PO ONCE@1400 ONE Stop: 06/04/19 14:01 Warfarin Sodium (Coumadin Per Pharmacy) 1 order PO [facility] Medical - PN: A/P - Time Spent With Patient Total time spent is greater than 50% in coordination of care (as documented) at patient's floor/unit and/or counseling patient: 25 - 35 minutes (1) Left lower lobe pneumonia Status: Acute Assessment and plan: * Left lower lobe pneumonia-white count over 11. Lymphocyte 10%/monocyte 20%. Continue antibiotic coverage for community-acquired pathogen. Pulmonary toilet. Inpatient admission. Respiratory panel negative. * Early sepsis -continue management per guidelines. 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 On pacemaker. Anticoagulation on Coumadin for CVA prophylaxis. * hyperlipidemia on statin * Anxiety depression continue sertraline/BuSpar * BPH continue tamsulosin/finasteride * Anticoagulation on Coumadin * DNR PLAN * Continue contact precautions * Continue antibiotic coverage * Pre-existing medical condition management home meds * Coumadin dosing based on INR * PT OT nutrition support Current Visit: Yes Medical - PN: Qual - VTE Deep Vein Thrombosis/Pulmonary Embolism Present on Admission: No
[2019-06-04] MEDS ORDERED: WARFARIN 3 MG TABLET PO ONE (14:00)
[2019-06-04] MEDS: AZITHROMYCIN 500 MG in DEXTROSE 5% IN WATER 250 ML IV SCH (15:46)
[2019-06-04] MEDS: 0.9 % SODIUM CHLORIDE 1,000 ML IV SCH ×2 (17:04→21:02)
[2019-06-04] MEDS: TAMSULOSIN 0.4 MG CAPSULE PO SCH (20:58)
[2019-06-04] MEDS: SIMVASTATIN 20 MG TABLET PO SCH (20:59)
[2019-06-04] MEDS: SENNOSIDES/DOCUSATE SODIUM 1 TAB TABLET PO SCH (20:59)
[2019-06-05 07:36] LABS: Hematocrit 45.3 % (40.1-51.0); Hemoglobin 14.6 g/dL (13.7-17.5); Mean Cell Volume 93.8 fL (80.0-100.0); Mean Corpuscular HGB Conc 32.2 g/dL (31.0-36.0); Mean Platelet Volume 11.2 fL (7.4-10.4); RBC 4.83 M/mcL (4.63-6.08); Red Cell Distribution Width 13.9 % (11.5-14.5); WBC 9.6 K/mcL (4.50-11.00)
[2019-06-05 07:39] LABS: Platelet Count 106 K/mcL (140-440)
[2019-06-05 07:49] LABS: INR 1.9 (0.9-1.1); Prothrombin Time 22.2 sec (11.9-14.5)
[2019-06-05] MEDS: 0.9 % SODIUM CHLORIDE 10 ML SYRINGE IV SCH ×3 (07:55→20:50)
[2019-06-05] MEDS: INSULIN LISPRO 1 UNIT/0.01 ML UNIT SQ SCH ×4 (07:56→20:50)
[2019-06-05 08:08] LABS: Bilirubin,Direct < 0.2 mg/dL (0.0-0.3); Chloride 96 mmol/L (96-108)
[2019-06-05 08:11] LABS: ALT/SGPT 21 U/l (0-40); AST/SGOT 35 U/l (0-37); Albumin 3.4 gm/dL (3.2-5.2); Albumin/Globulin Ratio 0.9 (1.0-2.3); Alkaline Phosphatase 69 U/L (39-117); Bilirubin,Total 0.8 mg/dL (0.0-1.0); Blood Urea Nitrogen 22 mg/dl (8-23); Calcium 9.2 mg/dl (8.6-10.4); Carbon Dioxide 25 mmol/L (22-30); Globulin 3.9 gm/dL (2.2-3.7); Glomerular Filtration Rate 62; Glucose 105 mg/dL (70-105); Lactate Dehydrogenase 386 U/L (94-250); Phosphorous 2.9 mg/dL (2.7-4.5); Triglycerides 92 mg/dl (<150); Uric Acid 6.2 mg/dL (2.5-8.0)
[2019-06-05 08:34] LABS: Band Neutrophils % 1 % (0-10); Lymphocytes % 11 % (15-49); Monocytes % (Manual) 10 % (1-12); Platelet Estimate DECREASED (NORMAL); RBC Morphology NORMAL (NORMAL); Segmented Neutrophils % 78 % (38-78)
[2019-06-05] MEDS: BUDESONIDE 0.5 MG/2 ML AMPUL.NEB NEB SCH ×2 (09:27→19:37)
[2019-06-05] MEDS: IPRATROPIUM/ALBUTEROL 3 ML AMPUL.NEB NEB PRN (09:28)
[2019-06-05] MEDS: HEPARIN 5,000 UNIT/ML VIAL SQ SCH ×2 (09:40→20:47)
[2019-06-05] MEDS: busPIRone 5 MG TABLET PO SCH ×2 (09:40→20:45)
[2019-06-05] MEDS: cloNIDine HCL 0.1 MG TABLET PO SCH ×2 (09:40→20:45)
[2019-06-05] MEDS: FINASTERIDE 5 MG TABLET PO SCH (09:41)
[2019-06-05] MEDS: HYDROCHLOROTHIAZIDE 25 MG TABLET PO SCH (09:41)
[2019-06-05] MEDS: FAMOTIDINE 20 MG TABLET PO SCH ×2 (09:41→20:45)
[2019-06-05] MEDS: MULTIVIT,THER IRON,CA,FA & MIN 1 TABLET PO SCH (09:41)
[2019-06-05] MEDS: OXYBUTYNIN CHLORIDE 5 MG TAB.XL.24H PO SCH (09:41)
[2019-06-05] MEDS: SERTRALINE 100 MG TABLET PO SCH (09:41)
[2019-06-05] MEDS: DOCUSATE SODIUM 100 MG CAPSULE PO SCH ×2 (09:41→20:45)
[2019-06-05] MEDS: cefTRIAXone 2 GM in DEXTROSE 5% IN WATER 50 ML IV SCH (09:44)
[2019-06-05] MEDS: AZITHROMYCIN 500 MG in DEXTROSE 5% IN WATER 250 ML IV SCH (10:21)
[2019-06-05] MEDS ORDERED: WARFARIN 3 MG TABLET PO SCH (14:00)
[2019-06-05] MEDS: 0.9 % SODIUM CHLORIDE 1,000 ML IV SCH ×2 (14:52→18:50)
--- NOTE | 2019-06-05 15:11 | Internal Med Progress Note ---
Medical - PN: Subj Patient information: Note initiated : 06/05/19 at 3:09 pm Service Date, if different from initiated Date: [] Patient: Ernesto Murillo a 83 y/o M admitted on 06/03/19 for shortness of breath. Chief Complaint: [] Interval history: Mr. Murillo is a 83 year old M with a history of COPD/HTN/anxiety disorder who presents to the ER with worsening shortness of breath that started this morning. Patient states that he has been his baseline since state of health and was feeling fine until yesterday. He denied aspiration episode/symptoms of orthopnea the previous night. This morning he woke up and was unable to catch her breath. He denies associated expectoration. With worsening symptoms he presents to the ER. Initial work-up was consistent with fever of 102 along with leukocytosis and left lower lobe infiltrates. Patient was started on antibiotic coverage. Respiratory cultures were sent. Subsequently hospitalist service was consulted. At the time evaluation patient is short of breath and unable to talk in full sentences. He denies aspiration episodes. He denies recent travel or exposure to sick contacts. His last hospitalization was in June at [facility] for aortic valve replacement . He denies chest pain, palpitation, diaphoresis, lightheadedness dizziness. 06/03-patient stable overnight. On 2 L oxygen. No significant changes but short of breath. T-max 102. SARS virus RNA pending. Appears anxious 06/04-patient doing well. Ambulating. No overnight events. No concerns per staff. SARS virus RNA pending. T-max 100.2. White count 9.6 with lymphopenia. INR 1.9. Continue PT OT/nutrition support - Constitutional Vitals: Vital Signs Temp Pulse Resp BP Pulse Ox 99.5 F H 67 22 118/68 94 06/05/19 12:00 06/05/19 12:00 06/05/19 12:00 06/05/19 12:00 06/05/19 12:00 Period Temp Pulse Resp BP Sys/Mcneill Pulse Ox Last 24 Hr 99.4 F-101.8 F 67-80 18-24 100-130/60-80 94-97 Intake and Output 06/05/19 06/05/19 06/05/19 05:59 13:59 21:59 Intake Total 300 540 240 Output Total 2 51 Balance 298 489 240 Intake & Output: Intake & Output 06/05/19 06/05/19 06/05/19 05:59 13:59 21:59 Intake Total 300 540 240 Output Total 2 51 Balance 298 489 240 Intake: IV 300 Zithromax 500 mg In Dextrose 5% 250 in Water 250 ml @ 250 mls/hr IV Q24H [facility] Rx#:[id number] Rocephin 2 gm In Dextrose 5% in 50 Water 50 ml @ 100 mls/hr IV Q24H [facility] Rx#:[id number] Oral 300 240 240 Output: Void Amount 50 # of times incontinent of urine 2 1 Other: Meal Breakfast Lunch Percent of Meal Consumed 100% 50% Feeding Ability Assist with Tray Set Up Assist with Tray Set Up Urine Odor Normal General appearance: no acute distress Exam: Alert oriented On 2 L oxygen Minimally labored breathing No anxiety Medical - PN: Obj Da - Labs CBC & Chem 7: 06/05/19 05:25 06/05/19 05:25 Labs: Abnormal Lab Results 06/05/19 06/05/19 06/05/19 05:26 05:25 05:25 WBC RBC Plt Count 106 L MPV 11.2 H Lymph % (Auto) [place] % (Auto) Lymph # (Auto) [place] # (Auto) Lymphocytes % 11 L Monocytes % (Manual) Platelet Estimate Decreased A PT 22.2 H INR 1.9 H Glucose Phosphorus GGT 72 H Lactate Dehydrogenase 386 H NT-Pro-B Natriuret Pep Globulin 3.9 H Albumin/Globulin Ratio 0.9 L Urine Occult Blood Urine RBC 06/04/19 06/04/19 06/04/19 07:14 06:10 06:10 WBC 11.9 H RBC 4.60 L Plt Count 113 L MPV 11.0 H Lymph % (Auto) [place] % (Auto) Lymph # (Auto) [place] # (Auto) Lymphocytes % 10 L Monocytes % (Manual) 20 H Platelet Estimate Decreased A PT 24.4 H INR 2.1 H Glucose 106 H Phosphorus 2.4 L GGT 68 H Lactate Dehydrogenase 331 H NT-Pro-B Natriuret Pep Globulin Albumin/Globulin Ratio Urine Occult Blood Urine RBC 06/03/19 06/03/19 06/03/19 18:20 15:56 15:55 WBC 11.1 H RBC Plt Count 129 L MPV 10.6 H Lymph % (Auto) 9.0 L [place] % (Auto) 19.4 H Lymph # (Auto) 1.00 L [place] # (Auto) 2.15 H Lymphocytes % Monocytes % (Manual) Platelet Estimate PT INR Glucose 111 H Phosphorus GGT Lactate Dehydrogenase NT-Pro-B Natriuret Pep 1694.0 H Globulin Albumin/Globulin Ratio Urine Occult Blood 0.03 A Urine RBC 5 H Meds: Medications Acetaminophen (Tylenol) 650 mg PO Q4-6HP PRN; Protocol PRN Reason: Per Pain Protocol/Fever > 101 Last Admin: 06/04/19 08:03 Dose: 650 mg Documented by: Albuterol/Ipratropium (Duoneb) 3 ml NEB Q4HP PRN PRN Reason: Shortness Of Breath Last Admin: 06/05/19 09:28 Dose: 3 ml Documented by: Bisacodyl (Dulcolax) 10 mg [place] Q2-3DAYS PRN PRN Reason: Constipation Budesonide (Pulmicort) 0.5 mg NEB Q12 [facility] Last Admin: 06/05/19 09:27 Dose: 0.5 mg Documented by: Buspirone HCl (Buspar) 7.5 mg PO BID [facility] Last Admin: 06/05/19 09:40 Dose: 7.5 mg Documented by: Clonidine HCl (Catapres) 0.2 mg PO BID [facility] Last Admin: 06/05/19 09:40 Dose: 0.2 mg Documented by: Dextrose (Dextrose 50%) 0 ml IV UD PRN PRN Reason: Hypoglycemia Diagnostic Test (Pha) (Accu-Chek) 1 each FS ACHS [facility] Last Admin: 06/05/19 11:56 Dose: 1 each Documented by: Docusate Sodium (Colace) 100 mg PO BID [facility] Last Admin: 06/05/19 09:41 Dose: 100 mg Documented by: Famotidine (Pepcid) 20 mg PO BID [facility] Last Admin: 06/05/19 09:41 Dose: 20 mg Documented by: Finasteride (Proscar) 5 mg PO DAILY [facility] Last Admin: 06/05/19 09:41 Dose: 5 mg Documented by: Glucose (Insta-Glucose) 15 gm PO PRN PRN PRN Reason: Hypoglycemia Heparin Sodium (Porcine) (Heparin) 5,000 unit SQ Q12 [facility] Last Admin: 06/05/19 09:40 Dose: 5,000 unit Documented by: Hydrochlorothiazide (Oretic) 25 mg PO DAILY [facility] Last Admin: 06/05/19 09:41 Dose: 25 mg Documented by: Sodium Chloride (Sodium Chloride 0.9%) 1,000 mls @ 50 mls/hr IV .Q20H [facility] Stop: 06/06/19 09:05 Last Admin: 06/05/19 14:52 Dose: Not Given Documented by: Acetaminophen (Ofirmev) 650 mg in 65 mls @ 130 mls/hr IV Q6HP PRN; Protocol PRN Reason: Per Pain Protocol/Fever > 101 Magnesium Sulfate (Magnesium Sulfate) 2 gm in 50 mls @ 50 mls/hr IV UD PRN PRN Reason: MG = or < 1.7 Ceftriaxone Sodium 2 gm/ (Dextrose) 50 mls @ 100 mls/hr IV Q24H [facility]; Protocol Last Infusion: 06/05/19 10:15 Dose: Infused Documented by: Azithromycin 500 mg/ Dextrose 250 mls @ 250 mls/hr IV Q24H [facility]; Protocol Stop: 06/05/19 23:59 Last Infusion: 06/05/19 11:35 Dose: Infused Documented by: Insulin Human Lispro (Humalog) 0 unit SQ ACHS [facility]; Protocol Last Admin: 06/05/19 11:58 Dose: Not Given Documented by: Iron Carb/Multivit/Pro Shop Attendant/Folic Acid (Multivitamin W/Minerals) 1 tab PO DAILY [facility] Last Admin: 06/05/19 09:41 Dose: 1 tab Documented by: Melatonin (Melatonin 3mg Tablet) 3 mg PO HSP PRN PRN Reason: Insomnia Ondansetron HCl (Zofran Odt) 4 mg SL Q4-6HP PRN; Protocol PRN Reason: Nausea And Vomiting Ondansetron HCl (Zofran) 4 mg IV Q4-6HP PRN; Protocol PRN Reason: Nausea And Vomiting Oxybutynin Chloride (Ditropan Xl) 5 mg PO QDAY [facility] Last Admin: 06/05/19 09:41 Dose: 5 mg Documented by: Polyethylene Glycol (Miralax) 17 gm PO DAILYP PRN PRN Reason: Constipation Potassium Chloride (Klor-Con) 40 meq PO DAILYP PRN PRN Reason: K+ < 3.5 Senna/Docusate Sodium (Senna Plus Tablet) 1 tab PO [facility] Last Admin: 06/04/19 20:59 Dose: 1 tab Documented by: Sertraline HCl (Zoloft) 100 mg PO QDAY [facility] Last Admin: 06/05/19 09:41 Dose: 100 mg Documented by: Simvastatin (Zocor) 20 mg PO [facility] Last Admin: 06/04/19 20:59 Dose: 20 mg Documented by: Sodium Chloride (Saline Flush) 10 ml IV Q8 [facility] Last Admin: 06/05/19 14:52 Dose: Not Given Documented by: Tamsulosin HCl (Flomax) 0.4 mg PO [facility] Last Admin: 06/04/19 20:58 Dose: 0.4 mg Documented by: Warfarin Sodium (Coumadin Per Pharmacy) 1 order PO [facility] [place] Warfarin Sodium (Coumadin) 3 mg PO TODAY@1400 [facility] Stop: 06/05/19 16:00 Last Admin: 06/05/19 14:22 Dose: 3 mg Documented by: Medical - PN: A/P - Time Spent With Patient Total time spent is greater than 50% in coordination of care (as documented) at patient's floor/unit and/or counseling patient: 25 - 35 minutes (1) Left lower lobe pneumonia Status: Acute Assessment and plan: * Left lower lobe pneumonia-white count improving. Lymphopenia 10%/monocyte 20%. On antibiotic coverage for community-acquired pathogen. Clinical improvement noted. Continue pulmonary toilet. Tony any pending * Early sepsis -clinically improved. 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 On pacemaker. Anticoagulation on Coumadin for CVA prophylaxis. * hyperlipidemia on statin * Anxiety depression continue sertraline/BuSpar * BPH continue tamsulosin/finasteride * Anticoagulation on Coumadin * DNR PLAN * Continue contact precautions * Continue antibiotic coverage * Pre-existing medical condition management home meds * Daily Coumadin dosing * PT OT nutrition support Current Visit: Yes Medical - PN: Qual - VTE Deep Vein Thrombosis/Pulmonary Embolism Present on Admission: No
[2019-06-05] MEDS: SENNOSIDES/DOCUSATE SODIUM 1 TAB TABLET PO SCH (20:44)
[2019-06-05] MEDS: TAMSULOSIN 0.4 MG CAPSULE PO SCH (20:44)
[2019-06-05] MEDS: SIMVASTATIN 20 MG TABLET PO SCH (20:44)
[2019-06-06] MEDS: 0.9 % SODIUM CHLORIDE 10 ML SYRINGE IV SCH ×3 (07:09→21:23)
[2019-06-06] MEDS: INSULIN LISPRO 1 UNIT/0.01 ML UNIT SQ SCH ×4 (07:09→21:19)
[2019-06-06] MEDS: BUDESONIDE 0.5 MG/2 ML AMPUL.NEB NEB SCH (09:06)
[2019-06-06] MEDS: IPRATROPIUM/ALBUTEROL 3 ML AMPUL.NEB NEB PRN (09:06)
[2019-06-06] MEDS: cefTRIAXone 2 GM in DEXTROSE 5% IN WATER 50 ML IV SCH (09:25)
[2019-06-06] MEDS: cloNIDine HCL 0.1 MG TABLET PO SCH ×2 (09:25→21:22)
[2019-06-06] MEDS: busPIRone 5 MG TABLET PO SCH ×2 (09:25→21:20)
[2019-06-06] MEDS: OXYBUTYNIN CHLORIDE 5 MG TAB.XL.24H PO SCH (09:26)
[2019-06-06] MEDS: FAMOTIDINE 20 MG TABLET PO SCH ×2 (09:26→21:22)
[2019-06-06] MEDS: MULTIVIT,THER IRON,CA,FA & MIN 1 TABLET PO SCH (09:26)
[2019-06-06] MEDS: HEPARIN 5,000 UNIT/ML VIAL SQ SCH ×2 (09:27→21:21)
[2019-06-06] MEDS: FINASTERIDE 5 MG TABLET PO SCH (09:27)
[2019-06-06] MEDS: DOCUSATE SODIUM 100 MG CAPSULE PO SCH ×2 (09:27→21:22)
[2019-06-06] MEDS: SERTRALINE 100 MG TABLET PO SCH (09:27)
[2019-06-06] MEDS: HYDROCHLOROTHIAZIDE 25 MG TABLET PO SCH (09:27)
[2019-06-06 10:09] LABS: Mean Cell Volume 93.9 fL (80.0-100.0); Mean Corpuscular HGB Conc 32.6 g/dL (31.0-36.0); Mean Platelet Volume 12.2 fL (7.4-10.4); RBC 4.58 M/mcL (4.63-6.08); Red Cell Distribution Width 13.8 % (11.5-14.5); WBC 8.7 K/mcL (4.50-11.00)
[2019-06-06 10:10] LABS: Platelet Count 88 K/mcL (140-440)
[2019-06-06 10:23] LABS: INR 1.8 (0.9-1.1); Prothrombin Time 21.8 sec (11.9-14.5)
[2019-06-06 10:33] LABS: ALT/SGPT 31 U/l (0-40); AST/SGOT 45 U/l (0-37); Albumin 3.5 gm/dL (3.2-5.2); Alkaline Phosphatase 70 U/L (39-117); Bilirubin,Direct < 0.2 mg/dL (0.0-0.3); Bilirubin,Total 0.6 mg/dL (0.0-1.0); Blood Urea Nitrogen 24 mg/dl (8-23); Calcium 8.9 mg/dl (8.6-10.4); Carbon Dioxide 27 mmol/L (22-30); Chloride 98 mmol/L (96-108); Globulin 3.4 gm/dL (2.2-3.7); Glomerular Filtration Rate 62; Glucose 110 mg/dL (70-105); Lactate Dehydrogenase 351 U/L (94-250); Triglycerides 97 mg/dl (<150); Uric Acid 6.5 mg/dL (2.5-8.0)
[2019-06-06 10:38] LABS: Eosinophils % (Manual) 2 % (0-7); Lymphocytes % 11 % (15-49); Monocytes % (Manual) 24 % (1-12); Myelocytes % 1 % (0-0); Platelet Estimate DECREASED (NORMAL); RBC Morphology NORMAL (NORMAL); Segmented Neutrophils % 62 % (38-78)
[2019-06-06] MEDS ORDERED: WARFARIN 2 MG TABLET PO SCH (14:00)
--- NOTE | 2019-06-06 15:10 | Internal Med Progress Note ---
Medical - PN: Subj Patient information: Note initiated : 06/06/19 at 3:06 pm Service Date, if different from initiated Date: [] Patient: Ernesto Murillo a 83 y/o M admitted on 06/03/19 for shortness of breath. Chief Complaint: [] Interval history: Mr. Murillo is a 83 year old M with a history of COPD/HTN/anxiety disorder who presents to the ER with worsening shortness of breath that started this morning. Patient states that he has been his baseline since state of health and was feeling fine until yesterday. He denied aspiration episode/symptoms of orthopnea the previous night. This morning he woke up and was unable to catch her breath. He denies associated expectoration. With worsening symptoms he presents to the ER. Initial work-up was consistent with fever of 102 along with leukocytosis and left lower lobe infiltrates. Patient was started on antibiotic coverage. Respiratory cultures were sent. Subsequently hospitalist service was consulted. At the time evaluation patient is short of breath and unable to talk in full sentences. He denies aspiration episodes. He denies recent travel or exposure to sick contacts. His last hospitalization was in June at [facility] for aortic valve replacement . He denies chest pain, palpitation, diaphoresis, lightheadedness dizziness. 06/03-patient stable overnight. On 2 L oxygen. No significant changes but short of breath. T-max 102. SARS virus RNA pending. Appears anxious 06/04-patient doing well. Currently 2 L oxygen and desaturates with minimal exertion. No overnight events. No concerns per staff. No fever chills nausea vomiting. Continuing antibiotic coverage. White count 8.7. INR 1.8 06/05-doing well. Await coronavirus RNA. On contact the question. White count continues downtrend. Tolerating diet and physical therapy. On 2 L oxygen. Feels better since previous day. - Constitutional Vitals: Vital Signs Temp Pulse Resp BP Pulse Ox 99.3 F H 68 18 124/66 95 06/06/19 12:00 06/06/19 12:00 06/06/19 12:00 06/06/19 12:00 06/06/19 12:00 Period Temp Pulse Resp BP Sys/Mcneill Pulse Ox Last 24 Hr 97.7 F-99.7 F 65-90 15-24 124-142/60-76 95-96 Intake and Output 06/06/19 06/06/19 06/06/19 05:59 13:59 21:59 Intake Total 300 360 Output Total 201 1 Balance 99 -1 360 Intake & Output: Intake & Output 06/06/19 06/06/19 06/06/19 05:59 13:59 21:59 Intake Total 300 360 Output Total 201 1 Balance 99 -1 360 Intake: Oral 300 360 Output: Void Amount 200 # of times incontinent of urine 1 1 Other: Meal Lunch Percent of Meal Consumed 100% Feeding Ability Independent General appearance: no acute distress Exam: On 4 L nasal cannula Alert oriented Minimally labored breathing Diminished breath sounds bases No lymphedema Medical - PN: Obj Da - Labs CBC & Chem 7: 06/06/19 07:35 06/06/19 07:35 Labs: Abnormal Lab Results 06/06/19 06/06/19 06/06/19 07:35 07:35 07:35 WBC RBC 4.58 L Plt Count 88 L MPV 12.2 H Lymph % (Auto) Kleberg % (Auto) Lymph # (Auto) Kleberg # (Auto) Lymphocytes % 11 L Monocytes % (Manual) 24 H Myelocytes % 1 H Platelet Estimate Decreased A PT 21.8 H INR 1.8 H BUN 24 H Glucose 110 H Phosphorus GGT 70 H AST 45 H Lactate Dehydrogenase 351 H NT-Pro-B Natriuret Pep Globulin Albumin/Globulin Ratio Urine Occult Blood Urine RBC 06/05/19 06/05/19 06/05/19 05:26 05:25 05:25 WBC RBC Plt Count 106 L MPV 11.2 H Lymph % (Auto) Kleberg % (Auto) Lymph # (Auto) [place] # (Auto) Lymphocytes % 11 L Monocytes % (Manual) Myelocytes % Platelet Estimate Decreased A PT 22.2 H INR 1.9 H BUN Glucose Phosphorus GGT 72 H AST Lactate Dehydrogenase 386 H NT-Pro-B Natriuret Pep Globulin 3.9 H Albumin/Globulin Ratio 0.9 L Urine Occult Blood Urine RBC 06/04/19 06/04/19 06/04/19 07:14 06:10 06:10 WBC 11.9 H RBC 4.60 L Plt Count 113 L MPV 11.0 H Lymph % (Auto) Kle[place] % (Auto) Lymph # (Auto) Kle[place] # (Auto) Lymphocytes % 10 L Monocytes % (Manual) 20 H Myelocytes % Platelet Estimate Decreased A PT 24.4 H INR 2.1 H BUN Glucose 106 H Phosphorus 2.4 L GGT 68 H AST Lactate Dehydrogenase 331 H NT-Pro-B Natriuret Pep Globulin Albumin/Globulin Ratio Urine Occult Blood Urine RBC 06/03/19 06/03/19 06/03/19 18:20 15:56 15:55 WBC 11.1 H RBC Plt Count 129 L MPV 10.6 H Lymph % (Auto) 9.0 L Kleberg % (Auto) 19.4 H Lymph # (Auto) 1.00 L Kleberg # (Auto) 2.15 H Lymphocytes % Monocytes % (Manual) Myelocytes % Platelet Estimate PT INR BUN Glucose 111 H Phosphorus GGT AST Lactate Dehydrogenase NT-Pro-B Natriuret Pep 1694.0 H Globulin Albumin/Globulin Ratio Urine Occult Blood 0.03 A Urine RBC 5 H Meds: Medications Acetaminophen (Tylenol) 650 mg PO Q4-6HP PRN; Protocol PRN Reason: Per Pain Protocol/Fever > 101 Last Admin: 06/04/19 08:03 Dose: 650 mg Documented by: Albuterol/Ipratropium (Duoneb) 3 ml NEB Q4HP PRN PRN Reason: Shortness Of Breath Last Admin: 06/06/19 09:06 Dose: 3 ml Documented by: Bisacodyl (Dulcolax) 10 mg [place] Q2-3DAYS PRN PRN Reason: Constipation Budesonide (Pulmicort) 0.5 mg NEB Q12 [facility] Last Admin: 06/06/19 09:06 Dose: 0.5 mg Documented by: Buspirone HCl (Buspar) 7.5 mg PO BID [facility] Last Admin: 06/06/19 09:25 Dose: 7.5 mg Documented by: Clonidine HCl (Catapres) 0.2 mg PO BID [facility] Last Admin: 06/06/19 09:25 Dose: 0.2 mg Documented by: Dextrose (Dextrose 50%) 0 ml IV UD PRN PRN Reason: Hypoglycemia Diagnostic Test (Pha) (Accu-Chek) 1 each FS ACHS [facility] Last Admin: 06/06/19 12:15 Dose: 1 each Documented by: Docusate Sodium (Colace) 100 mg PO BID [facility] Last Admin: 06/06/19 09:27 Dose: 100 mg Documented by: Famotidine (Pepcid) 20 mg PO BID [facility] Last Admin: 06/06/19 09:26 Dose: 20 mg Documented by: Finasteride (Proscar) 5 mg PO DAILY [facility] Last Admin: 06/06/19 09:27 Dose: 5 mg Documented by: Glucose (Insta-Glucose) 15 gm PO PRN PRN PRN Reason: Hypoglycemia Heparin Sodium (Porcine) (Heparin) 5,000 unit SQ Q12 [facility] Last Admin: 06/06/19 09:27 Dose: 5,000 unit Documented by: Hydrochlorothiazide (Oretic) 25 mg PO DAILY [facility] Last Admin: 06/06/19 09:27 Dose: 25 mg Documented by: Acetaminophen (Ofirmev) 650 mg in 65 mls @ 130 mls/hr IV Q6HP PRN; Protocol PRN Reason: Per Pain Protocol/Fever > 101 Magnesium Sulfate (Magnesium Sulfate) 2 gm in 50 mls @ 50 mls/hr IV UD PRN PRN Reason: MG = or < 1.7 Ceftriaxone Sodium 2 gm/ (Dextrose) 50 mls @ 100 mls/hr IV Q24H [facility]; Protocol Last Admin: 06/06/19 09:25 Dose: 100 mls/hr Documented by: Insulin Human Lispro (Humalog) 0 unit SQ ACHS [facility]; Protocol Last Admin: 06/06/19 12:17 Dose: Not Given Documented by: Iron Carb/Multivit/Lassen/Folic Acid (Multivitamin W/Minerals) 1 tab PO DAILY [facility] Last Admin: 06/06/19 09:26 Dose: 1 tab Documented by: Melatonin (Melatonin 3mg Tablet) 3 mg PO HSP PRN PRN Reason: Insomnia Ondansetron HCl (Zofran Odt) 4 mg SL Q4-6HP PRN; Protocol PRN Reason: Nausea And Vomiting Ondansetron HCl (Zofran) 4 mg IV Q4-6HP PRN; Protocol PRN Reason: Nausea And Vomiting Oxybutynin Chloride (Ditropan Xl) 5 mg PO QDAY [facility] Last Admin: 06/06/19 09:26 Dose: 5 mg Documented by: Polyethylene Glycol (Miralax) 17 gm PO DAILYP PRN PRN Reason: Constipation Potassium Chloride (Klor-Con) 40 meq PO DAILYP PRN PRN Reason: K+ < 3.5 Senna/Docusate Sodium (Senna Plus Tablet) 1 tab PO HS [facility] Last Admin: 06/05/19 20:44 Dose: 1 tab Documented by: Sertraline HCl (Zoloft) 100 mg PO QDAY [facility] Last Admin: 06/06/19 09:27 Dose: 100 mg Documented by: Simvastatin (Zocor) 20 mg PO [facility] Last Admin: 06/05/19 20:44 Dose: 20 mg Documented by: Sodium Chloride (Saline Flush) 10 ml IV Q8 [facility] Last Admin: 06/06/19 14:19 Dose: 10 ml Documented by: Tamsulosin HCl (Flomax) 0.4 mg PO [facility] Last Admin: 06/05/19 20:44 Dose: 0.4 mg Documented by: Warfarin Sodium (Coumadin Per Pharmacy) 1 order PO [facility] [place] Warfarin Sodium (Coumadin) 4 mg PO TODAY@1400 [facility] Stop: 06/06/19 16:00 Last Admin: 06/06/19 14:18 Dose: 4 mg Documented by: Medical - PN: A/P - Time Spent With Patient Total time spent is greater than 50% in coordination of care (as documented) at patient's floor/unit and/or counseling patient: 25 - 35 minutes (1) Left lower lobe pneumonia Status: Acute Assessment and plan: * Left lower lobe pneumonia-white count improved. However persistent hypoxia requiring 2 L oxygen.Continue antibiotic coverage for community-acquired pathogen. Pulmonary toilet. Await SARS RNA. * Acute hypoxic respiratory failure requiring 2 L oxygen. Secondary to pneumonia. Continue supplemental oxygen/pulmonary toilet/gentle diuresis * Early sepsis - clinically resolved. White count normalized. 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 On pacemaker. Anticoagulation on Coumadin for CVA prophylaxis. INR 1.9 * hyperlipidemia on statin * Anxiety depression continue sertraline/BuSpar * BPH continue tamsulosin/finasteride * Anticoagulation on Coumadin * DNR PLAN * Wean oxygen as tolerated * Antibiotic coverage * PT OT * Steroids and diuretics * Pre-existing medical condition management home meds * Daily Coumadin dosing based on INR * PT OT nutrition support Current Visit: Yes Medical - PN: Qual - VTE Deep Vein Thrombosis/Pulmonary Embolism Present on Admission: No
[2019-06-06] MEDS ORDERED: ALBUTEROL SULFATE 1 PUFF INHALER INH PRN (16:27)
[2019-06-06] MEDS: FUROSEMIDE 20 MG/2 ML VIAL IV SCH (16:38)
[2019-06-06] MEDS: TAMSULOSIN 0.4 MG CAPSULE PO SCH (21:22)
[2019-06-06] MEDS: SENNOSIDES/DOCUSATE SODIUM 1 TAB TABLET PO SCH (21:22)
[2019-06-06] MEDS: SIMVASTATIN 20 MG TABLET PO SCH (21:22)
[2019-06-07] MEDS: 0.9 % SODIUM CHLORIDE 10 ML SYRINGE IV SCH ×3 (05:02→20:14)
[2019-06-07] MEDS: FUROSEMIDE 20 MG/2 ML VIAL IV SCH ×2 (07:20→16:30)
[2019-06-07] MEDS: INSULIN LISPRO 1 UNIT/0.01 ML UNIT SQ SCH ×4 (07:20→20:19)
[2019-06-07 08:07] LABS: ALT/SGPT 47 U/l (0-40); AST/SGOT 64 U/l (0-37); Albumin 3.4 gm/dL (3.2-5.2); Albumin/Globulin Ratio 0.9 (1.0-2.3); Alkaline Phosphatase 80 U/L (39-117); Bilirubin,Direct < 0.2 mg/dL (0.0-0.3); Bilirubin,Total 0.6 mg/dL (0.0-1.0); Blood Urea Nitrogen 27 mg/dl (8-23); Calcium 9.4 mg/dl (8.6-10.4); Carbon Dioxide 28 mmol/L (22-30); Globulin 3.6 gm/dL (2.2-3.7); Glomerular Filtration Rate 70; Glucose 102 mg/dL (70-105); Lactate Dehydrogenase 369 U/L (94-250); Phosphorous 3.4 mg/dL (2.7-4.5); Triglycerides 83 mg/dl (<150); Uric Acid 7.2 mg/dL (2.5-8.0)
[2019-06-07 08:14] LABS: Chloride 95 mmol/L (96-108); Hematocrit 42.1 % (40.1-51.0); Hemoglobin 13.6 g/dL (13.7-17.5); Mean Cell Volume 94.2 fL (80.0-100.0); Mean Corpuscular HGB Conc 32.3 g/dL (31.0-36.0); Mean Platelet Volume 11.6 fL (7.4-10.4); Platelet Count 94 K/mcL (140-440); RBC 4.47 M/mcL (4.63-6.08); Red Cell Distribution Width 13.7 % (11.5-14.5); WBC 7.1 K/mcL (4.50-11.00)
[2019-06-07 09:11] LABS: INR 2.2 (0.9-1.1); Prothrombin Time 25.1 sec (11.9-14.5)
[2019-06-07 09:24] LABS: Band Neutrophils % 2 % (0-10); Basophils % (Manual) 1 % (0-2); Eosinophils % (Manual) 1 % (0-7); Lymphocytes % 16 % (15-49); Monocytes % (Manual) 33 % (1-12); Platelet Estimate DECREASED (NORMAL); Polychromasia FEW (NONE SEEN); RBC Morphology ABNORM (NORMAL); Segmented Neutrophils % 47 % (38-78)
[2019-06-07] MEDS: busPIRone 5 MG TABLET PO SCH ×2 (09:31→20:12)
[2019-06-07] MEDS: OXYBUTYNIN CHLORIDE 5 MG TAB.XL.24H PO SCH (09:31)
[2019-06-07] MEDS: cloNIDine HCL 0.1 MG TABLET PO SCH ×2 (09:32→20:13)
[2019-06-07] MEDS: MULTIVIT,THER IRON,CA,FA & MIN 1 TABLET PO SCH (09:32)
[2019-06-07] MEDS: HEPARIN 5,000 UNIT/ML VIAL SQ SCH ×2 (09:32→20:14)
[2019-06-07] MEDS: HYDROCHLOROTHIAZIDE 25 MG TABLET PO SCH (09:32)
[2019-06-07] MEDS: DOCUSATE SODIUM 100 MG CAPSULE PO SCH ×2 (09:32→20:13)
[2019-06-07] MEDS: SERTRALINE 100 MG TABLET PO SCH (09:32)
[2019-06-07] MEDS: FAMOTIDINE 20 MG TABLET PO SCH ×2 (09:32→20:13)
[2019-06-07] MEDS: FINASTERIDE 5 MG TABLET PO SCH (09:32)
[2019-06-07] MEDS: cefTRIAXone 2 GM in DEXTROSE 5% IN WATER 50 ML IV SCH (09:41)
[2019-06-07] MEDS ORDERED: cefTRIAXone 2 GM VIAL ONE (09:41)
[2019-06-07] MEDS ORDERED: WARFARIN 2 MG TABLET PO SCH (14:00)
--- NOTE | 2019-06-07 16:07 | Internal Med Progress Note ---
Medical - PN: Subj Patient information: Note initiated : 06/07/19 at 4:05 pm Service Date, if different from initiated Date: [] Patient: Ernesto Murillo a 83 y/o M admitted on 06/03/19 for shortness of breath. Chief Complaint: [] Interval history: Mr. Murillo is a 83 year old M with a history of COPD/HTN/anxiety disorder who presents to the ER with worsening shortness of breath that started this morning. Patient states that he has been his baseline since state of health and was feeling fine until yesterday. He denied aspiration episode/symptoms of orthopnea the previous night. This morning he woke up and was unable to catch her breath. He denies associated expectoration. With worsening symptoms he presents to the ER. Initial work-up was consistent with fever of 102 along with leukocytosis and left lower lobe infiltrates. Patient was started on antibiotic coverage. Respiratory cultures were sent. Subsequently hospitalist service was consulted. At the time evaluation patient is short of breath and unable to talk in full sentences. He denies aspiration episodes. He denies recent travel or exposure to sick contacts. His last hospitalization was in June at [facility] for aortic valve replacement . He denies chest pain, palpitation, diaphoresis, lightheadedness dizziness. 06/03-patient stable overnight. On 2 L oxygen. No significant changes but short of breath. T-max 102. SARS virus RNA pending. Appears anxious 06/04-patient doing well. Currently 2 L oxygen and desaturates with minimal exertion. No overnight events. No concerns per staff. No fever chills nausea vomiting. Continuing antibiotic coverage. White count 8.7. INR 1.8 06/05-doing well. Await coronavirus RNA. On contact the question. White count continues downtrend. Tolerating diet and physical therapy. On 2 L oxygen. Feels better since previous day. 06/06 patient doing a lot better. On 2 L oxygen. Ambulating. Coronavirus test pending. Likely discharge in 24 hours given considerable clinical improvement. However we will continue contact precautions at home until results are available. No other concerns per staff. Afebrile. - Constitutional Vitals: Vital Signs Temp Pulse Resp BP Pulse Ox 98.6 F 78 22 125/64 96 06/07/19 11:54 06/07/19 12:10 06/07/19 12:10 06/07/19 11:54 06/07/19 11:54 Period Temp Pulse Resp BP Sys/Mcneill Pulse Ox Last 24 Hr 97.0 F-98.6 F 67-78 18-22 122-140/64-68 93-96 Intake and Output 06/07/19 06/07/19 06/07/19 05:59 13:59 21:59 Intake Total 300 720 Output Total 425 601 100 Balance -125 119 -100 Intake & Output: Intake & Output 06/07/19 06/07/19 06/07/19 05:59 13:59 21:59 Intake Total 300 720 Output Total 425 601 100 Balance -125 119 -100 Intake: Oral 300 720 Output: Void Amount 425 600 100 # of times incontinent of urine 1 Other: Meal Lunch Percent of Meal Consumed 100% Feeding Ability Independent Urine Appearance Clear Urine Color Bright Yellow Straw Urine Odor Normal Normal General appearance: no acute distress Exam: Alert oriented Nonlabored breathing On 2 L oxygen No lymphedema Medical - PN: Obj Da - Labs CBC & Chem 7: 06/07/19 05:50 06/07/19 05:50 Labs: Abnormal Lab Results 06/07/19 06/07/19 06/07/19 05:50 05:50 05:50 RBC 4.47 L Hgb 13.6 L Plt Count 94 L MPV 11.6 H Lymphocytes % Monocytes % (Manual) 33 H Myelocytes % Platelet Estimate Decreased A RBC Morphology Abnorm A Polychromasia Few A PT 25.1 H INR 2.2 H Chloride 95 L BUN 27 H Glucose GGT 75 H AST 64 H ALT 47 H Lactate Dehydrogenase 369 H Globulin Albumin/Globulin Ratio 0.9 L 06/06/19 06/06/19 06/06/19 07:35 07:35 07:35 RBC 4.58 L Hgb Plt Count 88 L MPV 12.2 H Lymphocytes % 11 L Monocytes % (Manual) 24 H Myelocytes % 1 H Platelet Estimate Decreased A RBC Morphology Polychromasia PT 21.8 H INR 1.8 H Chloride BUN 24 H Glucose 110 H GGT 70 H AST 45 H ALT Lactate Dehydrogenase 351 H Globulin Albumin/Globulin Ratio 06/05/19 06/05/19 06/05/19 05:26 05:25 05:25 RBC Hgb Plt Count 106 L MPV 11.2 H Lymphocytes % 11 L Monocytes % (Manual) Myelocytes % Platelet Estimate Decreased A RBC Morphology Polychromasia PT 22.2 H INR 1.9 H Chloride BUN Glucose GGT 72 H AST ALT Lactate Dehydrogenase 386 H Globulin 3.9 H Albumin/Globulin Ratio 0.9 L Meds: Medications Acetaminophen (Tylenol) 650 mg PO Q4-6HP PRN; Protocol PRN Reason: Per Pain Protocol/Fever > 101 Last Admin: 06/04/19 08:03 Dose: 650 mg Documented by: Albuterol Sulfate (Ventolin) 2 puff INH Q4HP PRN PRN Reason: Shortness Of Breath Bisacodyl (Dulcolax) 10 mg [place] Q2-3DAYS PRN PRN Reason: Constipation Buspirone HCl (Buspar) 7.5 mg PO BID [facility] Last Admin: 06/07/19 09:31 Dose: 7.5 mg Documented by: Clonidine HCl (Catapres) 0.2 mg PO BID [facility] Last Admin: 06/07/19 09:32 Dose: 0.2 mg Documented by: Dextrose (Dextrose 50%) 0 ml IV UD PRN PRN Reason: Hypoglycemia Diagnostic Test (Pha) (Accu-Chek) 1 each FS ACHS [facility] Last Admin: 06/07/19 11:24 Dose: 1 each Documented by: Docusate Sodium (Colace) 100 mg PO BID [facility] Last Admin: 06/07/19 09:32 Dose: 100 mg Documented by: Famotidine (Pepcid) 20 mg PO BID [facility] Last Admin: 06/07/19 09:32 Dose: 20 mg Documented by: Finasteride (Proscar) 5 mg PO DAILY [facility] Last Admin: 06/07/19 09:32 Dose: 5 mg Documented by: Furosemide (Lasix) 20 mg IV BIDD [facility] Last Admin: 06/07/19 07:20 Dose: 20 mg Documented by: Glucose (Insta-Glucose) 15 gm PO PRN PRN PRN Reason: Hypoglycemia Heparin Sodium (Porcine) (Heparin) 5,000 unit SQ Q12 [facility] Last Admin: 06/07/19 09:32 Dose: 5,000 unit Documented by: Hydrochlorothiazide (Oretic) 25 mg PO DAILY [facility] Last Admin: 06/07/19 09:32 Dose: 25 mg Documented by: Acetaminophen (Ofirmev) 650 mg in 65 mls @ 130 mls/hr IV Q6HP PRN; Protocol PRN Reason: Per Pain Protocol/Fever > 101 Magnesium Sulfate (Magnesium Sulfate) 2 gm in 50 mls @ 50 mls/hr IV UD PRN PRN Reason: MG = or < 1.7 Ceftriaxone Sodium 2 gm/ (Dextrose) 50 mls @ 100 mls/hr IV Q24H [facility]; Protocol Last Admin: 06/07/19 09:41 Dose: 100 mls/hr Documented by: Insulin Human Lispro (Humalog) 0 unit SQ ACHS [facility]; Protocol Last Admin: 06/07/19 11:24 Dose: Not Given Documented by: Iron Carb/Multivit/[place]/Folic Acid (Multivitamin W/Minerals) 1 tab PO DAILY [facility] Last Admin: 06/07/19 09:32 Dose: 1 tab Documented by: Melatonin (Melatonin 3mg Tablet) 3 mg PO HSP PRN PRN Reason: Insomnia Ondansetron HCl (Zofran Odt) 4 mg SL Q4-6HP PRN; Protocol PRN Reason: Nausea And Vomiting Ondansetron HCl (Zofran) 4 mg IV Q4-6HP PRN; Protocol PRN Reason: Nausea And Vomiting Oxybutynin Chloride (Ditropan Xl) 5 mg PO QDAY [facility] Last Admin: 06/07/19 09:31 Dose: 5 mg Documented by: Polyethylene Glycol (Miralax) 17 gm PO DAILYP PRN PRN Reason: Constipation Potassium Chloride (Klor-Con) 40 meq PO DAILYP PRN PRN Reason: K+ < 3.5 Senna/Docusate Sodium (Senna Plus Tablet) 1 tab PO [facility] Last Admin: 06/06/19 21:22 Dose: 1 tab Documented by: Sertraline HCl (Zoloft) 100 mg PO QDAY [facility] Last Admin: 06/07/19 09:32 Dose: 100 mg Documented by: Simvastatin (Zocor) 20 mg PO [facility] Last Admin: 06/06/19 21:22 Dose: 20 mg Documented by: Sodium Chloride (Saline Flush) 10 ml IV Q8 [facility] Last Admin: 06/07/19 13:49 Dose: 10 ml Documented by: Tamsulosin HCl (Flomax) 0.4 mg PO [facility] Last Admin: 06/06/19 21:22 Dose: 0.4 mg Documented by: Warfarin Sodium (Coumadin Per Pharmacy) [address] [facility] [place] Medical - PN: A/P - Time Spent With Patient Total time spent is greater than 50% in coordination of care (as documented) at patient's floor/unit and/or counseling patient: 25 - 35 minutes (1) Left lower lobe pneumonia Status: Acute Assessment and plan: * Left lower lobe pneumonia-clinically improved. Possible discharge in 24 hours. Will qualify for home oxygen in light of 2 L requirement. Await SARS RNA. * Acute hypoxic respiratory failure Secondary to pneumonia. Continue supplemental oxygen/pulmonary toilet/gentle diuresis * Early sepsis - clinically resolved. White count normalized. 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 On pacemaker. Anticoagulation on Coumadin for CVA prophylaxis. INR 1.9 * hyperlipidemia on statin * Anxiety depression continue sertraline/BuSpar * BPH continue tamsulosin/finasteride * Anticoagulation on Coumadin * DNR PLAN * Wean oxygen as tolerated * Continue antibiotic coverage * Continue PT OT/nutrition support * Steroids and diuretics * Pre-existing medical condition management home meds * Daily Coumadin dosing based on INR * Discharge in 24 hours Current Visit: Yes Medical - PN: Qual - VTE Deep Vein Thrombosis/Pulmonary Embolism Present on Admission: No
[2019-06-07] MEDS: SENNOSIDES/DOCUSATE SODIUM 1 TAB TABLET PO SCH (20:12)
[2019-06-07] MEDS: TAMSULOSIN 0.4 MG CAPSULE PO SCH (20:13)
[2019-06-07] MEDS: SIMVASTATIN 20 MG TABLET PO SCH (20:14)
[2019-06-08] MEDS: 0.9 % SODIUM CHLORIDE 10 ML SYRINGE IV SCH (05:23)
[2019-06-08 06:50] LABS: Hemoglobin 14.1 g/dL (13.7-17.5); Mean Cell Volume 92.9 fL (80.0-100.0); Mean Corpuscular HGB Conc 32.8 g/dL (31.0-36.0); Mean Platelet Volume 11.5 fL (7.4-10.4); RBC 4.63 M/mcL (4.63-6.08); Red Cell Distribution Width 13.2 % (11.5-14.5); WBC 5.9 K/mcL (4.50-11.00)
[2019-06-08 06:52] LABS: Platelet Count 105 K/mcL (140-440)
[2019-06-08 07:20] LABS: INR 2.1 (0.9-1.1); Prothrombin Time 24.2 sec (11.9-14.5)
[2019-06-08] MEDS: FUROSEMIDE 20 MG/2 ML VIAL IV SCH (07:26)
[2019-06-08] MEDS: INSULIN LISPRO 1 UNIT/0.01 ML UNIT SQ SCH (07:30)
[2019-06-08 07:43] LABS: ALT/SGPT 55 U/l (0-40); AST/SGOT 62 U/l (0-37); Albumin 3.4 gm/dL (3.2-5.2); Albumin/Globulin Ratio 0.9 (1.0-2.3); Alkaline Phosphatase 91 U/L (39-117); Bilirubin,Direct < 0.2 mg/dL (0.0-0.3); Bilirubin,Total 0.7 mg/dL (0.0-1.0); Blood Urea Nitrogen 26 mg/dl (8-23); Calcium 9.8 mg/dl (8.6-10.4); Carbon Dioxide 27 mmol/L (22-30); Chloride 96 mmol/L (96-108); Globulin 3.8 gm/dL (2.2-3.7); Glomerular Filtration Rate 79; Glucose 101 mg/dL (70-105); Lactate Dehydrogenase 384 U/L (94-250); Phosphorous 3.5 mg/dL (2.7-4.5); Triglycerides 101 mg/dl (<150); Uric Acid 7.9 mg/dL (2.5-8.0)
[2019-06-08 08:59] LABS: Band Neutrophils % 1 % (0-10); Eosinophils % (Manual) 3 % (0-7); Lymphocytes % 19 % (15-49); Monocytes % (Manual) 17 % (1-12); Platelet Estimate DECREASED (NORMAL); RBC Morphology NORMAL (NORMAL); Segmented Neutrophils % 60 % (38-78)
--- NOTE | 2019-06-08 09:17 | Discharge Summary ---
Medical - DS: Prov Patient information: Note initiated : 06/08/19 at 9:15 am Service Date, if different from initiated Date: [] Patient: Ernesto Murillo 83 y/o M admitted on 06/03/19 for shortness of breath. Chief Complaint: [] Date of admission: 06/03/19 21:00 Discharge date: 06/08/19 Primary care physician: Donna Bianchi Consults: 06/03/19 Consult to Physician [CONS] Stat Comment: Consulting Provider: Oleg Borden Reason For Exam: Physician to Consult Medical - DS: Meds - Discharge Medications Prescriptions: Cefdinir 300 mg PO BID #6 capsule Active and Home Medications: Home Medications Tamsulosin [Flomax] 0.4 mg PO HS 03/18/16 [History Confirmed 06/03/19 Last Taken 06/02/19 22:00] busPIRone [Buspar] 7.5 mg PO BID 03/18/16 [History Confirmed 06/03/19 Last Taken 06/02/19 22:00] albuterol sulfate 90 mcg/actuation aerosol inhaler 2 puff INHALATION DAILY g 03/28/16 [History Confirmed 06/03/19 Last Taken 06/02/19 14:00] cholecalciferol (vitamin D3) 125 mcg (5,000 unit) capsule 5,000 unit PO QDAY cap 04/05/16 [History Confirmed 06/03/19 Last Taken 06/02/19 14:00] coenzyme Q10 300 mg capsule 300 mg PO QDAY 04/05/16 [History Confirmed 06/03/19 Last Taken 06/02/19 14:00] omega-3 fatty acids 1,000 mg capsule 1,000 mg PO HS 04/05/16 [History Confirmed 06/03/19 Last Taken 06/02/19 22:00] losartan 100 mg-hydrochlorothiazide 25 mg tablet 1 tab PO DAILY #90 tab 03/27/19 [Rx Confirmed 06/03/19 Last Taken 06/02/19 14:00] sertraline 100 mg tablet 100 mg PO QDAY #90 tab 04/09/19 [Rx Confirmed 06/03/19 Last Taken 06/02/19 14:00] tiotropium bromide 18 mcg capsule with inhalation device See Rx Instructions .ROUTE QDAY #90 puff 04/10/19 [Rx Confirmed 06/03/19 Last Taken 06/02/19 14:00] clonidine HCl 0.2 mg tablet 0.2 mg PO BID #60 tab 04/15/19 [Rx Confirmed 06/03/19 Last Taken 06/02/19 22:00] lovastatin 40 mg tablet 80 mg PO HS tab 05/07/19 [History Confirmed 06/03/19 Last Taken 06/02/19 22:00] Finasteride [Proscar] 5 mg PO HS 06/03/19 [History Confirmed 06/03/19 Last Taken 06/02/19 22:00] Hydrochlorothiazide [Oretic] 25 mg PO DAILY 06/03/19 [History Confirmed 06/03/19 Last Taken 06/02/19 14:00] Oxybutynin Chloride [Oxybutynin Chloride ER] 5 mg PO HS 06/03/19 [History Confirmed 06/03/19 Last Taken 06/02/19 22:00] Ranitidine HCl [Acid [employer] V[employer]] 150 mg PO BID 06/03/19 [History Confirmed 06/03/19 Last Taken 06/02/19 22:00] Warfarin [Coumadin] 3 mg PO HS 06/03/19 [History Confirmed 06/03/19 Last Taken 06/02/19 22:00] Cefdinir 300 mg PO BID #6 capsule 06/08/19 [Rx Last Taken Unknown] Medical - DS: Hosp Hospital Course: Discharge diagnosis * Left lower lobe pneumonia-clinically improved. Discharging home with advised to follow PCP and continue antibiotic for additional 3 days * Acute hypoxic respiratory failure second pneumonia. On 2 L oxygen. Eval for home oxygen. 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 On pacemaker. Anticoagulation on Coumadin for CVA prophylaxis. INR 2.1 * hyperlipidemia on statin * Anxiety depression continue sertraline/BuSpar * BPH continue tamsulosin/finasteride * Anticoagulation on Coumadin Brief hospital course Mr. Murillo is a 83 year old M with a history of COPD/HTN/anxiety disorder who presents to the ER with worsening shortness of breath that started this morning. Patient states that he has been his baseline since state of health and was feeling fine until yesterday. He denied aspiration episode/symptoms of orthopnea the previous night. This morning he woke up and was unable to catch her breath. He denies associated expectoration. With worsening symptoms he presents to the ER. Initial work-up was consistent with fever of 102 along with leukocytosis and left lower lobe infiltrates. Patient was started on antibiotic coverage. Respiratory cultures were sent. Subsequently hospitalist service was consulted. At the time evaluation patient is short of breath and unable to talk in full sentences. He denies aspiration episodes. He denies recent travel or exposure to sick contacts. His last hospitalization was in June at [facility] for aortic valve replacement . He denies chest pain, palpitation, diaphoresis, lightheadedness dizziness. 06/03-patient stable overnight. On 2 L oxygen. No significant changes but short of breath. T-max 102. SARS virus RNA pending. Appears anxious 06/04-patient doing well. Currently 2 L oxygen and desaturates with minimal exertion. No overnight events. No concerns per staff. No fever chills nausea vomiting. Continuing antibiotic coverage. White count 8.7. INR 1.8 06/05-doing well. Await coronavirus RNA. On contact the question. White count continues downtrend. Tolerating diet and physical therapy. On 2 L oxygen. Feels better since previous day. 06/06 patient doing a lot better. On 2 L oxygen. Ambulating. Coronavirus test pending. Likely discharge in 24 hours given considerable clinical improvement. However we will continue contact precautions at home until results are availab le. No other concerns per staff. Afebrile. 06/07-patient doing better. Altered his oxygen. Qualify for home oxygen. Discharging advice as below. Continue isolation precautions until coronavirus results available. Follow-up primary care physician in 5 to 7 days. Discharge diagnosis: . - Time Spent with Patient Total time spent providing and/or coordinating discharge services: Greater than 30 minutes Medical - DS: Exam - Constitutional Vitals: Vital Signs Temp Pulse Pulse Resp BP Pulse Ox 06/08/19 08:37 66 20 06/08/19 07:46 20 95 06/08/19 07:36 97.4 F 18 130/68 95 06/08/19 03:39 97.4 F 66 18 122/66 96 06/08/19 00:00 97.2 F 68 20 124/68 94 06/07/19 18:49 97.9 F 67 20 130/70 96 06/07/19 16:00 98.7 F 68 22 132/70 98 06/07/19 12:10 78 22 06/07/19 11:54 98.6 F 78 22 125/64 96 Intake and Output 06/07/19 06/08/19 06/08/19 21:59 05:59 13:59 Intake Total 240 400 50 Output Total 401 725 Balance -161 -325 50 Intake: IV 50 Rocephin 2 gm In Dextrose 5% in 50 Water 50 ml @ 100 mls/hr IV Q24H TIFFANY Rx#:[id number] Oral 240 400 Output: Void Amount 400 725 # of times incontinent of urine 1 Other: Meal Dinner Percent of Meal Consumed 100% Feeding Ability Independent Urine Appearance Clear Clear Urine Color Pale Dark Yellow Urine Odor Normal Normal # Voids 250 Weight 239 lb 1.6 oz Medical - DS: Data Labs on day of discharge: Labs from last 24 hours 06/08/19 06/08/19 06/08/19 05:25 05:25 05:25 WBC 5.9 RBC 4.63 Hgb 14.1 Hct 43.0 MCV 92.9 MCH 30.5 MCHC 32.8 RDW 13.2 Plt Count 105 L MPV 11.5 H Total Counted 100 Seg Neutrophils % 60 Band Neutrophils % 1 Lymphocytes % 19 Monocytes % (Manual) 17 H Eosinophils % (Manual) 3 Basophils % (Manual) Platelet Estimate Decreased A RBC Morphology Normal Polychromasia PT 24.2 H INR 2.1 H Sodium 137 Potassium 4.2 Chloride 96 Carbon Dioxide 27 Anion Gap 14.0 BUN 26 H Creatinine 0.9 GFR Calculation 79 Glucose 101 Uric Acid 7.9 Calcium 9.8 Phosphorus 3.5 Magnesium 2.0 Total Bilirubin 0.7 Direct Bilirubin < 0.2 GGT 82 H AST 62 H ALT 55 H Alkaline Phosphatase 91 Lactate Dehydrogenase 384 H Total Protein 7.2 Albumin 3.4 Globulin 3.8 H Albumin/Globulin Ratio 0.9 L Triglycerides 101 06/07/19 05:50 WBC RBC Hgb Hct MCV MCH MCHC RDW Plt Count MPV Total Counted 100 Seg Neutrophils % 47 Band Neutrophils % 2 Lymphocytes % 16 Monocytes % (Manual) 33 H Eosinophils % (Manual) 1 Basophils % (Manual) 1 Platelet Estimate Decreased A RBC Morphology Abnorm A Polychromasia Few A PT INR Sodium Potassium Chloride Carbon Dioxide Anion Gap BUN Creatinine GFR Calculation Glucose Uric Acid Calcium Phosphorus Magnesium Total Bilirubin Direct Bilirubin GGT AST ALT Alkaline Phosphatase Lactate Dehydrogenase Total Protein Albumin Globulin Albumin/Globulin Ratio Triglycerides Preliminary micro results at discharge 06/03/19 16:35 Blood Culture - Preliminary Blood 06/03/19 16:35 Blood Culture - Preliminary Blood Medical - DS: A/P - Patient/Caregiver Discharge Instructions Activity: increase activity as tolerated, other (Home oxygen) Diet: Low Sodium (2gm) Additional Instructions: Follow-up PCP in 5 days Coumadin dosing based on INR RT to evaluate for home oxygen Continue CO VID 19 isolation precaution until results available I recommend primary care physician to check INR, CBC BMP UA as a posthospital follow-up in 1 week. Antibiotics for additional 3 days oxygen as per RT eval to keep sats around 95 Continue aggressive bowel regimen to prevent constipation Continue fall precautions All meals on chair sitting upright at 90 degrees to prevent aspiration Return to ER if worsening fever chills shortness of breath, diarrhea, bleeding Review risk and side effect profile of medications including antibiotics. Side effect may include mild to severe reaction including rash, diarrhea, cdiff and even which can be prevented by close follow-up with PCP and monitoring for side effects Continue diet and activity as advised Discussed importance of medication adherence Please review medication list with patient prior to discharge Please schedule follow-up with PCP/Providers prior to discharge and provide printouts Prescriptions: Cefdinir 300 mg PO BID #6 capsule - Problem Maintenance (1) Left lower lobe pneumonia Status: Acute - Follow up Plan Follow up with: Donna Bianchi ARNP [Primary Care Provider] - Disposition: Home, Self-Care Prognosis: Fair Rehab Potential: Fair I certify that the patient requires SNF services: No Overall status at discharge: patient is progressing back to baseline Medical - DS: Qual - VTE Deep Vein Thrombosis/Pulmonary Embolism Present on Admission: No
[2019-06-08] MEDS: busPIRone 5 MG TABLET PO SCH (09:27)
[2019-06-08] MEDS: DOCUSATE SODIUM 100 MG CAPSULE PO SCH (09:28)
[2019-06-08] MEDS: HYDROCHLOROTHIAZIDE 25 MG TABLET PO SCH (09:28)
[2019-06-08] MEDS: FINASTERIDE 5 MG TABLET PO SCH (09:28)
[2019-06-08] MEDS: SERTRALINE 100 MG TABLET PO SCH (09:28)
[2019-06-08] MEDS: cloNIDine HCL 0.1 MG TABLET PO SCH (09:28)
[2019-06-08] MEDS: OXYBUTYNIN CHLORIDE 5 MG TAB.XL.24H PO SCH (09:28)
[2019-06-08] MEDS: FAMOTIDINE 20 MG TABLET PO SCH (09:28)
[2019-06-08] MEDS: HEPARIN 5,000 UNIT/ML VIAL SQ SCH (09:28)
[2019-06-08] MEDS: MULTIVIT,THER IRON,CA,FA & MIN 1 TABLET PO SCH (09:28)
[2019-06-08] MEDS: cefTRIAXone 2 GM in DEXTROSE 5% IN WATER 50 ML IV SCH (09:30)
[2019-06-08] MEDS ORDERED: WARFARIN 3 MG TABLET PO SCH (14:00)
== END 2019-06-08 12:01 | disposition home or self-care (01) | DRG 871 ==
LOC: ED 15:22 → MEDSUR 20:59
PROVIDERS: ADMIT Internal Medicine; ATTEND Internal Medicine